=== PATIENT | male | born 1980 ===

== ENCOUNTER 2016-12-13 11:08 | Emergency (ER) | payer OTHER ==
--- NOTE | 2016-12-13 13:27 | DIAGNOSTIC IMAGING REPORT ---
PROCEDURE: XR CHEST 2 VIEW INDICATION: CHEST PAIN TECHNIQUE: Two views. COMPARISON: 10/19/2015 FINDINGS: The cardiomediastinal contour is stable, within normal limits. The central vasculature is not congested. The lungs are clear without focal consolidation, pleural effusion or pneumothorax. The visualized osseous structures are intact. IMPRESSION: 1. No evidence of acute cardiopulmonary disease. 2. Stable exam compared to prior study.
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
--- NOTE | 2016-12-13 14:11 | ED ORDER SUMMARY ---
..... Patient: TAHMINA CHASE OrderSheet [facility] VisitID: [id number] [place] [address] 36y, M Registration Date/Time: 12/13/2016 ORDER SHEET Weight: 2.2 kg (stated) Allergies: No Known Drug Allergy GENERAL ORDERS: Chest 2V Urgent (13:10 12/13/2016 Ramone SUTTON) (Ack 13:14 PWeiler ER Tech1) (13:38 JSanders R.N.) Cardiac Panel Stat (13:10 12/13/2016 Ramone SUTTON) (Ack 13:14 PWeiler ER Tech1) (13:26 JSanders R.N.) EKG - ER Stat (13:12/13/2016 Ramone SUTTON) (Ack 13:14 PWeiler ER Tech1) (13:24 PWeiler ER Tech1) MEDICATION ORDERS: IV FLUIDS: Ativan IV 0.5 mg (NOW) (12:05 12/13/2016 Ramone SUTTON) (12:14 JSanders R.N.) IV Saline Lock (13:10 12/13/2016 Ramone SUTTON) (13:26 JSanders R.N.) Ativan IV 0.5 mg (NOW) (13:54 12/13/2016 JSanders R.N. verbal order read back to Ramone SUTTON) (13:55 JSanders R.N.) ORDER SHEET NOTES: [Electronically signed by Sara Curry R.N. (14:47 12/13/2016)] [Electronically signed by Lenin Urban MD (21:26 12/14/2016)] [Electronically locked/signed by aSra Curry R.N. (14:47 12/13/2016)]
--- NOTE | 2016-12-13 14:11 | ED ORDER SUMMARY ---
..... Patient: TAHMINA CHASE OrderSheet [facility] VisitID: [id number] [place] [address] 36y, M Registration Date/Time: 12/13/2016 ORDER SHEET Weight: 2.2 kg (stated) Allergies: No Known Drug Allergy GENERAL ORDERS: Chest 2V Urgent (13:10 12/13/2016 Ramone SUTTON) (Ack 13:14 PWeiler ER Tech1) (13:38 JSanders R.N.) Cardiac Panel Stat (13:10 12/13/2016 Ramone SUTTON) (Ack 13:14 PWeiler ER Tech1) (13:26 JSanders R.N.) EKG - ER Stat (13:12/13/2016 Ramone SUTTON) (Ack 13:14 PWeiler ER Tech1) (13:24 PWeiler ER Tech1) MEDICATION ORDERS: IV FLUIDS: Ativan IV 0.5 mg (NOW) (12:05 12/13/2016 Ramone SUTTON) (12:14 JSanders R.N.) IV Saline Lock (13:10 12/13/2016 Ramone SUTTON) (13:26 JSanders R.N.) Ativan IV 0.5 mg (NOW) (13:54 12/13/2016 JSanders R.N. verbal order read back to Ramone SUTTON) (13:55 JSanders R.N.) ORDER SHEET NOTES: [Electronically signed by Sara Curry R.N. (14:47 12/13/2016)] [Electronically signed by Lenin Urban MD (21:26 12/14/2016)] [Electronically locked/signed by Sara Curry R.N. (14:47 12/13/2016)]
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
--- NOTE | 2016-12-14 21:26 | ED DISCHARGE INSTRUCTIONS ---
Patient: SALVATORETAHMINAMIRIAM Avila General Instructions [facility] VisitID: [id number] [place] [address] 36y, M Registration Date/Time: 12/13/2016 Anxiety reaction with hyperventilation. INSTRUCTIONS No strenuous activity. Rest. Do not work for three days until better. Warnings: Further evaluation is necessary. SEDATIVE MEDICATION: You were given sedative medication during your visit. Do not drive or operate dangerous machinery. GENERAL WARNINGS: Return or contact your physician immediately if your condition worsens or changes unexpectedly, if not improving as expected, or if other problems arise. Prescription Medications: Xanax 0.25 mg: take 1-2 orally every 6 hours as needed for anxiety. Dispense fifteen (15). No refill. Substitution is permissible. Follow-up: Follow up with your doctor in one week. Call for an appointment. Understanding of the discharge instructions verbalized by patient and family. Discharge instructions reviewed (Mother). ADDITIONAL INFORMATION Stress Reaction Anxiety is the feeling we all get when we think something bad might happen. It is a normal response to stress and usually causes only a mild reaction. When anxiety becomes more severe, emotions may interfere with daily life. In some cases, you may not even be aware of what it is youre anxious about! During an anxiety reaction, you may feel like you are helpless, nervous, depressed or irritable. Your body may show signs of anxiety in many ways. You may experience dry mouth, shakiness, dizziness, weakness, trouble breathing, chest pressure, headache, nausea, diarrhea, tiredness, inability to sleep or sexual problems. Home Care: 1) Try to locate the sources of stress in your life. They may not be obvious! These may include: -- Daily hassles of life which pile up (traffic jams, missed appointments, car troubles, etc.) -- Major life changes, both good (new baby, job promotion) and bad (loss of job, loss of loved one) -- Overload: feeling that you have too many responsibilities and can't take care of all of them at once -- Feeling helpless, feeling that your problems are beyond what youre able to solve 2) Notice how your body reacts to stress. Learn to listen to your body signals. This will help you take action before the stress becomes severe. 3) When you can, do something about the source of your stress. (Avoid hassles, limit the amount of change that happens in your life at one time and take a break when you feel overloaded). 4) Unfortunately, many stressful situations cannot be avoided. It is necessary to learn HOW TO MANAGE STRESS better. There are many proven methods that will reduce your anxiety. These include simple things like exercise, good nutrition and adequate rest. Also, there are certain techniques that are helpful: relaxation and breathing exercises, visualization, biofeedback and meditation. For more information about this, consult your doctor or go to a local bookstore and review the many books and tapes available on this subject. Follow Up If you feel that your anxiety is not responding to self-help measures, contact your doctor or make an appointment with a counselor. Get Prompt Medical Attention if any of the following occur: -- Your symptoms get worse -- Chest pain or trouble breathing -- Severe headache not relieved by rest and mild pain reliever -- Rapid or irregular heartbeat, fainting Panic Attack A panic attack is an extreme fear reaction that comes on for no apparent reason. Symptoms may include pounding or racing heartbeat, shortness of breath, dizziness, weakness and sweating. There is usually a fear that something terrible will happen or that you may . The attack may last a few minutes up to a few hours. Between attacks things will seem quite normal. This condition has a psychological cause and can be treated with the help of a therapist or psychiatrist. Medication is often used and can be very helpful for this problem. Home Care: Try to identify the sources of stress in your life. It may not be obvious! These may include: Daily hassles of life which pile up (traffic jams, missed appointments, car troubles, etc.). Major life changes, both good (new baby, job promotion) and bad (loss of job, loss of loved one). Overload: feeling that you have too many responsibilities and can't take care of everything at once. Helplessness: feeling like your problems are too much for you to handle. Notice how your body reacts to stress. Learn to listen to your body signals so that you can take action before the stress becomes severe. When possible, AVOID or REDUCE THE CAUSE OF STRESS. Avoid hassles, limit the amount of change that is happening in your life at one time or take a break when you feel overloaded. Unfortunately, many stressful situations cannot be avoided. Therefore, it is necessary to LEARN HOW TO MANAGE STRESS better. There are many proven methods that work and will reduce your anxiety. These include simple things like exercise, good nutrition and adequate rest. Also, there are certain techniques that are helpful: relaxation and breathing exercises, visualization, biofeedback, meditation or simply taking some time-out to clear your mind. For more information about this, consult your doctor or go to a local bookstore and review the many books and tapes available on this subject. Follow Up with your doctor or a therapist as advised. Get Prompt Medical Attention if any of the following occur: Worsening of your symptoms to the point of feeling [id number] A change in the type of pain: if it feels different, becomes more severe, lasts longer, or begins to spread into your shoulder, arm, neck, jaw or back Shortness of breath or increased pain with breathing Increasing feeling of weakness or dizziness Fainting Cough with dark colored sputum (phlegm) or blood Fever of 100.4F (38C) or higher, or as directed by your healthcare provider Swelling, pain or redness in one leg Hyperventilation Syndrome Hyperventilation Syndrome is a condition in which you lose control of your breathing. You may find yourself breathing too fast and/or too deep. This can be triggered by pain, anxiety and emotional stress. If hyperventilation continues for more than a few minutes, it can lead to a number of frightening symptoms, such as: Numbness and tingling of the hands, feet and face Clenching of the fingers or toes Dizziness Feeling like you cannot get enough air Chest pains Fainting or feeling like you are going to faint Once these symptoms begin, it is often hard to stop them because they lead to a cycle of more anxiety and more hyperventilation. It is important to understand that this is not a life-threatening condition and it will pass once you are able to relax. Relaxation and stress management methods can be learned and practiced in advance. These can help in the event of a future attack. Home Care: 1) Rest today until feeling back to normal. 2) If symptoms return: Sit or lie down. Remember that what is happening to you is temporary and will pass. Use the relaxation methods you have learned. It is no longer recommended to breathe into a paper bag. Follow Up with your doctor or as directed by our staff if symptoms recur. Get Prompt Medical Attention if any of the following occur: Increasing shortness of breath Fever of 100.0 F (38 C) or higher, or as directed by your healthcare provider Coughing up blood Chest pain that is made worse with each breath Redness, pain or swelling of the leg Ringing in your ears, Severe headache Weakness or fainting Alprazolam Oral tablet What is this medicine? ALPRAZOLAM (al PRAY dolores mcleod) is a benzodiazepine. It is used to treat anxiety and panic attacks. How should I use this medicine? Take this medicine by mouth with a glass of water. Follow the directions on the prescription label. Take your medicine at regular intervals. Do not take it more often than directed. If you have been taking this medicine regularly for some time, do not suddenly stop taking it. You must gradually reduce the dose or you may get severe side effects. Ask your doctor or health urgent care physician assistant for advice. Even after you stop taking this medicine it can still affect your body for several days. Talk to your turn out worker regarding the use of this medicine in children. Special care may be needed. What side effects may I notice from receiving this medicine? Side effects that you should report to your doctor or health urgent care physician assistant as soon as possible: allergic reactions like skin rash, itching or hives, swelling of the face, lips, or tongue confusion, forgetfulness depression difficulty sleeping difficulty speaking feeling faint or lightheaded, falls mood changes, excitability or aggressive behavior muscle cramps trouble passing urine or change in the amount of urine unusually weak or tired Side effects that usually do not require medical attention (report to your doctor or health urgent care physician assistant if they continue or are bothersome): change in sex drive or performance changes in appetite What may interact with this medicine? Do not take this medicine with any of the following medications: certain medicines for HIV infection or AIDS ketoconazole itraconazole This medicine may also interact with the following medications: control pills certain macrolide antibiotics like clarithromycin, erythromycin, troleandomycin cimetidine cyclosporine ergotamine grapefruit juice herbal or dietary supplements like kava kava, melatonin, dehydroepiandrosterone, DHEA, [place]'s Wort or valerian imatinib, [id number] isoniazid levodopa medicines for depression, anxiety, or psychotic disturbances prescription pain medicines rifampin, rifapentine, or rifabutin some medicines for blood pressure or heart problems some medicines for seizures like carbamazepine, oxcarbazepine, phenobarbital, phenytoin, primidone What if I miss a dose? If you miss a dose, take it as soon as you can. If it is almost time for your next dose, take only that dose. Do not take double or extra doses. Where should I keep my medicine? Keep out of the reach of children. This medicine can be abused. Keep your medicine in a safe place to protect it from theft. Do not share this medicine with anyone. Selling or giving away this medicine is dangerous and against the law. Store at room temperature between 20 and 25 degrees C (68 and 77 degrees F). Throw away any unused medicine after the expiration date. What should I tell my health care provider before I take this medicine? They need to know if you have any of these conditions: an alcohol or drug abuse problem bipolar disorder, depression, psychosis or other mental health conditions glaucoma kidney or liver disease lung or breathing disease myasthenia gravis Parkinson's disease porphyria seizures or a history of seizures suicidal thoughts an unusual or allergic reaction to alprazolam, other benzodiazepines, foods, dyes, or preservatives or trying to get breast-feeding What should I watch for while using this medicine? Visit your doctor or health urgent care physician assistant for regular checks on your progress. Your body can become dependent on this medicine. Ask your doctor or health urgent care physician assistant if you still need to take it. You may get drowsy or dizzy. Do not drive, use machinery, or do anything that needs mental alertness until you know how this medicine affects you. To reduce the risk of dizzy and fainting spells, do not stand or sit up quickly, especially if you are an older patient. Alcohol may increase dizziness and drowsiness. Avoid alcoholic drinks. Do not treat yourself for coughs, colds or allergies without asking your doctor or health urgent care physician assistant for advice. Some ingredients can increase possible side effects. You have been given the following additional information: Anxiety Reaction Panic Attack Hyperventilation Syndrome Alprazolam Oral tablet No strenuous activity. Rest. Do not work for three days until better. (Electronically signed by Lenin Urban MD 12/14/2016 21:26)
--- NOTE | 2016-12-14 21:26 | ED MED RECONCILIATION SUMMARY ---
Patient: TAHMINA CHASE Medication Reconciliation Report [facility] VisitID: [id number] [place] [address] 36y, M Registration Date/Time: 12/13/2016 Weight: 2.2 kg Height/Length: 71 in. BMI: 0.7 ALLERGIES: No Known Drug Allergy The patient's Home Medications are listed below: THE FOLLOWING MEDICATIONS NEED TO BE RECONCILED: Hydrochlorothiazide Oral 12.5 mg Lisinopril Oral 10 mg The source(s) of the original Home Medication information: Not obtained. The following Medications were given to the patient in the Emergency Department: Ativan [IVP] IVP 0.5 mg, administered: 12/13/2016 12:14:00 PM Ativan [IVP] IVP 0.5 mg, administered: 12/13/2016 1:54:00 PM The following Medications were prescribed to the patient: Xanax 0.25 mg: take 1-2 orally every 6 hours as needed for anxiety. Dispense fifteen (15). No refill. Substitution is permissible. -- Lenin Urban MD
--- NOTE | 2016-12-14 21:26 | ED DISCHARGE INSTRUCTIONS ---
Patient: SALVATORETAHMINAMIRIAM vAila General Instructions [facility] VisitID: [id number] [place] [address] 36y, M Registration Date/Time: 12/13/2016 Anxiety reaction with hyperventilation. INSTRUCTIONS No strenuous activity. Rest. Do not work for three days until better. Warnings: Further evaluation is necessary. SEDATIVE MEDICATION: You were given sedative medication during your visit. Do not drive or operate dangerous machinery. GENERAL WARNINGS: Return or contact your physician immediately if your condition worsens or changes unexpectedly, if not improving as expected, or if other problems arise. Prescription Medications: Xanax 0.25 mg: take 1-2 orally every 6 hours as needed for anxiety. Dispense fifteen (15). No refill. Substitution is permissible. Follow-up: Follow up with your doctor in one week. Call for an appointment. Understanding of the discharge instructions verbalized by patient and family. Discharge instructions reviewed (Mother). ADDITIONAL INFORMATION Stress Reaction Anxiety is the feeling we all get when we think something bad might happen. It is a normal response to stress and usually causes only a mild reaction. When anxiety becomes more severe, emotions may interfere with daily life. In some cases, you may not even be aware of what it is youre anxious about! During an anxiety reaction, you may feel like you are helpless, nervous, depressed or irritable. Your body may show signs of anxiety in many ways. You may experience dry mouth, shakiness, dizziness, weakness, trouble breathing, chest pressure, headache, nausea, diarrhea, tiredness, inability to sleep or sexual problems. Home Care: 1) Try to locate the sources of stress in your life. They may not be obvious! These may include: -- Daily hassles of life which pile up (traffic jams, missed appointments, car troubles, etc.) -- Major life changes, both good (new baby, job promotion) and bad (loss of job, loss of loved one) -- Overload: feeling that you have too many responsibilities and can't take care of all of them at once -- Feeling helpless, feeling that your problems are beyond what youre able to solve 2) Notice how your body reacts to stress. Learn to listen to your body signals. This will help you take action before the stress becomes severe. 3) When you can, do something about the source of your stress. (Avoid hassles, limit the amount of change that happens in your life at one time and take a break when you feel overloaded). 4) Unfortunately, many stressful situations cannot be avoided. It is necessary to learn HOW TO MANAGE STRESS better. There are many proven methods that will reduce your anxiety. These include simple things like exercise, good nutrition and adequate rest. Also, there are certain techniques that are helpful: relaxation and breathing exercises, visualization, biofeedback and meditation. For more information about this, consult your doctor or go to a local bookstore and review the many books and tapes available on this subject. Follow Up If you feel that your anxiety is not responding to self-help measures, contact your doctor or make an appointment with a counselor. Get Prompt Medical Attention if any of the following occur: -- Your symptoms get worse -- Chest pain or trouble breathing -- Severe headache not relieved by rest and mild pain reliever -- Rapid or irregular heartbeat, fainting Panic Attack A panic attack is an extreme fear reaction that comes on for no apparent reason. Symptoms may include pounding or racing heartbeat, shortness of breath, dizziness, weakness and sweating. There is usually a fear that something terrible will happen or that you may . The attack may last a few minutes up to a few hours. Between attacks things will seem quite normal. This condition has a psychological cause and can be treated with the help of a therapist or psychiatrist. Medication is often used and can be very helpful for this problem. Home Care: Try to identify the sources of stress in your life. It may not be obvious! These may include: Daily hassles of life which pile up (traffic jams, missed appointments, car troubles, etc.). Major life changes, both good (new baby, job promotion) and bad (loss of job, loss of loved one). Overload: feeling that you have too many responsibilities and can't take care of everything at once. Helplessness: feeling like your problems are too much for you to handle. Notice how your body reacts to stress. Learn to listen to your body signals so that you can take action before the stress becomes severe. When possible, AVOID or REDUCE THE CAUSE OF STRESS. Avoid hassles, limit the amount of change that is happening in your life at one time or take a break when you feel overloaded. Unfortunately, many stressful situations cannot be avoided. Therefore, it is necessary to LEARN HOW TO MANAGE STRESS better. There are many proven methods that work and will reduce your anxiety. These include simple things like exercise, good nutrition and adequate rest. Also, there are certain techniques that are helpful: relaxation and breathing exercises, visualization, biofeedback, meditation or simply taking some time-out to clear your mind. For more information about this, consult your doctor or go to a local bookstore and review the many books and tapes available on this subject. Follow Up with your doctor or a therapist as advised. Get Prompt Medical Attention if any of the following occur: Worsening of your symptoms to the point of feeling [id number] A change in the type of pain: if it feels different, becomes more severe, lasts longer, or begins to spread into your shoulder, arm, neck, jaw or back Shortness of breath or increased pain with breathing Increasing feeling of weakness or dizziness Fainting Cough with dark colored sputum (phlegm) or blood Fever of 100.4F (38C) or higher, or as directed by your healthcare provider Swelling, pain or redness in one leg Hyperventilation Syndrome Hyperventilation Syndrome is a condition in which you lose control of your breathing. You may find yourself breathing too fast and/or too deep. This can be triggered by pain, anxiety and emotional stress. If hyperventilation continues for more than a few minutes, it can lead to a number of frightening symptoms, such as: Numbness and tingling of the hands, feet and face Clenching of the fingers or toes Dizziness Feeling like you cannot get enough air Chest pains Fainting or feeling like you are going to faint Once these symptoms begin, it is often hard to stop them because they lead to a cycle of more anxiety and more hyperventilation. It is important to understand that this is not a life-threatening condition and it will pass once you are able to relax. Relaxation and stress management methods can be learned and practiced in advance. These can help in the event of a future attack. Home Care: 1) Rest today until feeling back to normal. 2) If symptoms return: Sit or lie down. Remember that what is happening to you is temporary and will pass. Use the relaxation methods you have learned. It is no longer recommended to breathe into a paper bag. Follow Up with your doctor or as directed by our staff if symptoms recur. Get Prompt Medical Attention if any of the following occur: Increasing shortness of breath Fever of 100.0 F (38 C) or higher, or as directed by your healthcare provider Coughing up blood Chest pain that is made worse with each breath Redness, pain or swelling of the leg Ringing in your ears, Severe headache Weakness or fainting Alprazolam Oral tablet What is this medicine? ALPRAZOLAM (al PRAY dolores mcleod) is a benzodiazepine. It is used to treat anxiety and panic attacks. How should I use this medicine? Take this medicine by mouth with a glass of water. Follow the directions on the prescription label. Take your medicine at regular intervals. Do not take it more often than directed. If you have been taking this medicine regularly for some time, do not suddenly stop taking it. You must gradually reduce the dose or you may get severe side effects. Ask your doctor or health day care home mother for advice. Even after you stop taking this medicine it can still affect your body for several days. Talk to your [facility] [facility] regarding the use of this medicine in children. Special care may be needed. What side effects may I notice from receiving this medicine? Side effects that you should report to your doctor or health day care home mother as soon as possible: allergic reactions like skin rash, itching or hives, swelling of the face, lips, or tongue confusion, forgetfulness depression difficulty sleeping difficulty speaking feeling faint or lightheaded, falls mood changes, excitability or aggressive behavior muscle cramps trouble passing urine or change in the amount of urine unusually weak or tired Side effects that usually do not require medical attention (report to your doctor or health day care home mother if they continue or are bothersome): change in sex drive or performance changes in appetite What may interact with this medicine? Do not take this medicine with any of the following medications: certain medicines for HIV infection or AIDS ketoconazole itraconazole This medicine may also interact with the following medications: control pills certain macrolide antibiotics like clarithromycin, erythromycin, troleandomycin cimetidine cyclosporine ergotamine grapefruit juice herbal or dietary supplements like kava kava, melatonin, dehydroepiandrosterone, DHEA, [place] Wort or valerian imatinib, [id number] isoniazid levodopa medicines for depression, anxiety, or psychotic disturbances prescription pain medicines rifampin, rifapentine, or rifabutin some medicines for blood pressure or heart problems some medicines for seizures like carbamazepine, oxcarbazepine, phenobarbital, phenytoin, primidone What if I miss a dose? If you miss a dose, take it as soon as you can. If it is almost time for your next dose, take only that dose. Do not take double or extra doses. Where should I keep my medicine? Keep out of the reach of children. This medicine can be abused. Keep your medicine in a safe place to protect it from theft. Do not share this medicine with anyone. Selling or giving away this medicine is dangerous and against the law. Store at room temperature between 20 and 25 degrees C (68 and 77 degrees F). Throw away any unused medicine after the expiration date. What should I tell my health care provider before I take this medicine? They need to know if you have any of these conditions: an alcohol or drug abuse problem bipolar disorder, depression, psychosis or other mental health conditions glaucoma kidney or liver disease lung or breathing disease myasthenia gravis Parkinson's disease porphyria seizures or a history of seizures suicidal thoughts an unusual or allergic reaction to alprazolam, other benzodiazepines, foods, dyes, or preservatives or trying to get breast-feeding What should I watch for while using this medicine? Visit your doctor or health day care home mother for regular checks on your progress. Your body can become dependent on this medicine. Ask your doctor or health day care home mother if you still need to take it. You may get drowsy or dizzy. Do not drive, use machinery, or do anything that needs mental alertness until you know how this medicine affects you. To reduce the risk of dizzy and fainting spells, do not stand or sit up quickly, especially if you are an older patient. Alcohol may increase dizziness and drowsiness. Avoid alcoholic drinks. Do not treat yourself for coughs, colds or allergies without asking your doctor or health day care home mother for advice. Some ingredients can increase possible side effects. You have been given the following additional information: Anxiety Reaction Panic Attack Hyperventilation Syndrome Alprazolam Oral tablet No strenuous activity. Rest. Do not work for three days until better. (Electronically signed by Lenin Urban MD 12/14/2016 21:26)
--- NOTE | 2016-12-14 21:26 | ED MED RECONCILIATION SUMMARY ---
Patient: TAHMINA CHASE Medication Reconciliation Report [facility] VisitID: [id number] [place] [address] 36y, M Registration Date/Time: 12/13/2016 Weight: 2.2 kg Height/Length: 71 in. BMI: 0.7 ALLERGIES: No Known Drug Allergy The patient's Home Medications are listed below: THE FOLLOWING MEDICATIONS NEED TO BE RECONCILED: Hydrochlorothiazide Oral 12.5 mg Lisinopril Oral 10 mg The source(s) of the original Home Medication information: Not obtained. The following Medications were given to the patient in the Emergency Department: Ativan [IVP] IVP 0.5 mg, administered: 12/13/2016 12:14:00 PM Ativan [IVP] IVP 0.5 mg, administered: 12/13/2016 1:54:00 PM The following Medications were prescribed to the patient: Xanax 0.25 mg: take 1-2 orally every 6 hours as needed for anxiety. Dispense fifteen (15). No refill. Substitution is permissible. -- Lenin Urban MD
--- NOTE | 2016-12-14 21:26 | ED MAR SUMMARY ---
..... Medication Administration Record [facility] [address] [place] [address] Patient: TAHMINA CHASE Visit ID: [id number] 36y, M Weight: 2.2 kg Height/Length: 71 in BMI: 0.7 ALLERGIES: No Known Drug Allergy Given 12:14 12/13/2016 Sara Curry R.N. Medication Administered: ATIVAN [IVP] (LORAZEPAM), Dose: 0.5 mg IVP over 1 minute(s), Site: #1 right AC. Medication Ordered: Ativan IV 0.5 mg (NOW). Given 13:54 12/13/2016 Sara Curry R.N. Medication Administered: ATIVAN [IVP] (LORAZEPAM), Dose: 0.5 mg IVP over 1 minute(s), Site: #1 right AC. Medication Ordered: Ativan IV 0.5 mg (NOW).
--- NOTE | 2016-12-14 21:26 | ED MAR SUMMARY ---
..... Medication Administration Record [facility] [address] [place] [address] Patient: TAHMINA CHASE Visit ID: [id number] 36y, M Weight: 2.2 kg Height/Length: 71 in BMI: 0.7 ALLERGIES: No Known Drug Allergy Given 12:14 12/13/2016 Sara Curry R.N. Medication Administered: ATIVAN [IVP] (LORAZEPAM), Dose: 0.5 mg IVP over 1 minute(s), Site: #1 right AC. Medication Ordered: Ativan IV 0.5 mg (NOW). Given 13:54 12/13/2016 Sara Curry R.N. Medication Administered: ATIVAN [IVP] (LORAZEPAM), Dose: 0.5 mg IVP over 1 minute(s), Site: #1 right AC. Medication Ordered: Ativan IV 0.5 mg (NOW).
== END 2016-12-13 14:39 | disposition home or self-care (01) ==
LOC: ED SRH 11:08
DX: F41.1 Generalized anxiety disorder (principal); R06.4 Hyperventilation; I10 Essential (primary) hypertension; Z79.899 Other long term (current) drug therapy
CPT/HCPCS: 90100; 90616; 92610; 92720; 95059

== ENCOUNTER 2017-01-10 09:58 | Emergency (ER) | payer SELFPAY ==
--- NOTE | 2017-01-10 11:28 | DIAGNOSTIC IMAGING REPORT ---
PROCEDURE: XR CHEST 1 VIEW INDICATION: CHEST PAIN TECHNIQUE: Portable AP view 11:00 a.m. COMPARISON: Chest 12/13/2016 and 10/19/2015 FINDINGS: Lungs are clear. Heart and mediastinum are normal. Thorax is normal. IMPRESSION: 1. Negative chest.
--- NOTE | 2017-01-10 11:45 | ED NURSING NOTES ---
Clinical Report - Nurses [facility] [address] [place] [address] 01/10/2017 9:58 [id number] Triage time 10:Jan 10 2017. Acuity: LEVEL 2. Chief Complaint: CHEST PAIN. --10:07 Rodrigo Vences R.N. 10:03 01/10/17. BP: 122/78. HR: 64. RR: 18. O2 saturation: 97%. Pain level now 05/07. --10:07 Rodrigo Vences R.N. Weight: 90.7 kg stated. Height/Length: 71 inches Per Patient. BMI: 27.9. --10:05 Rodrigo Vences R.N. Medications Hydrochlorothiazide Oral 12.5 mg. Lisinopril Oral 10 mg. --10:05 Rodrigo Vences R.N. Allergies No Known Drug Allergy. --10:05 Rodrigo Vences R.N. History Arrived by private vehicle. Historian: patient. Accompanied by family. This started just prior to arrival. ( Went to urgent care with chest pain and left sided pain. Patient states left arm is numb and tingling.). No difficulty breathing, sweating episodes, nausea, vomiting or fever. No cough. PAST MEDICAL HX: No history of diabetes mellitus, hypertension, heart disease or lung disease. Immunizations: up-to-date. SOCIAL HX: Never smoker. No alcohol use or drug use. SELF HARM ASSESSMENT: A self harm assessment was performed. The patient answered "no" to the question "Have you recently felt down, depressed, or hopeless?" and "Do you have thoughts of harming or killing yourself?". FALL RISK ASSESSMENT: Fall risk assessment completed. No fall risk identified. NUTRITIONAL RISK ASSESSMENT: The nutritional risk assessment revealed no deficiencies. FUNCTIONAL ASSESSMENT: Functional assessment: no impairments noted. LEARNING NEEDS ASSESSMENT: The learning needs assessment revealed no barriers. ABUSE ASSESSMENT: Abuse assessment: (yes) The patient was asked "Do you feel safe in your home?". SKIN INTEGRITY ASSESSMENT: Skin integrity risk assessment completed. No skin integrity risk identified. --10: Rodrigo Vences R.N. PROBLEMS: Dyspnea. Costochondritis. Acute Pain. Crush Injury, Upper Extremity. Tetanus Status. Hypertension. TMJ Syndrome. Myofascial Strain. MRSA Infection. Sinusitis. Headache. Nausea. Anxiety Reaction. Immunizations. Drug Poisoning. Abdominal Pain. --10: Rodrigo Vences R.N. Pyelonephritis [RuleOut]. Suicidal Ideation [RuleOut]. Inguinal Strain [RuleOut]. --10: Rodrigo Vences R.N. ADDITIONAL SURGERIES: Appendectomy. Left buttock surgery for "MRSA". Shoulder Surgery. --10: Rodrigo Vences R.N. Interventions ID band on patient. --: Rodrigo Vences R.N. PHYSICAL ASSESSMENT To room via stretcher. GENERAL / NEURO / PSYCH: Alert. Oriented X 4. Appears anxious. HEENT: Mucous membranes are pink. RESPIRATORY: Respirations not labored. Chest nontender. Breath sounds within normal limits. CVS: Normal sinus rhythm noted. Cardiac rhythm: normal sinus rhythm; sinus . Heart sounds within normal limits. Pulses within normal limits. Capillary refill less than 2 seconds. GI / : Abdomen soft and nontender. ( Last BM last night and normal.). EXTREMITIES: No lower extremity edema. SKIN: Skin is warm and dry. Normal skin turgor. Skin is non-tender. --10: Rodrigo Vences R.N. NURSING PROGRESS NOTES The initial plan of care for this patient includes an assessment with efforts to address patient positioning, appropriate ambient lighting and comfortable environmental temperature; impairment of the cardiovascular system. corrosion prevention metal sprayer, pulse oximeter and NIBP monitor placed on patient. Patient gowned. Reassurance given. Call light placed in reach. Side rails up x 1. Bed placed in lowest position. Brakes of bed on. --10: Rodrigo Vences R.N. 10:01/10/2017 Site #1 started prior to arrival by EMS via IV in the right hand with an 18g angiocath, with aseptic technique and good blood return; one attempt. Saline lock flushed with 10 mL saline. --10: Rodriog Vences R.N. EKG time: (1007). EKG was ordered, performed by a tech and shown to the ED physician. --10:14 Emy LockwoodraSHU mtz Tech1 Patient ID band checked for patient name and birthdate: patient confirmed. Instructions provided to collect clean catch urine and patient verbalized understanding. Clean catch urine collected with return of yellow-colored clear urine; sample sent to lab for urinalysis, culture and drug screen. Specimen labeled in the presence of the patient. --11:00 Mandie Shira, ER Tech1 11:30 01/10/17. BP: 118/76. HR: 70. RR: 15. O2 saturation: 98%. Temp: 98.6 F. 11:00 01/10/17. BP: 119/75. HR: 66. RR: 12. O2 saturation: 97%. 10:30 01/10/17. BP: 119/74. HR: 66. RR: 16. O2 saturation: 95%. --12:01 Rodrigo Vences R.N. DISPOSITION / DISCHARGE Departure time: 1154Jan 10 2017. Condition at departure: improved. No learning barriers present. Discharge instructions provided and reviewed with the patient. Reviewed warnings. Reviewed medication(s). Treatments reviewed. Reviewed referrals. Patient verbalized understanding. Written instructions provided in Fijian. The patient was discharged home. He left the Emergency Department ambulatory and via private vehicle. Patient driving. --12:04 Rodrigo Vences R.N. 11:30 01/10/17. BP: 118/76. HR: 70. RR: 15. O2 saturation: 98%. Temp: 98.6 F. --12:04 Rodrigo Vences R.N. 11:45 01/10/2017 Site #1 removed upon discharge. Catheter intact. Pressure dressing applied. --12:05 Rodrigo Vences R.N. Locked/Released at 01/10/2017 19:30 by Rodrigo Vences R.N.
--- NOTE | 2017-01-10 11:45 | ED CLINICAL REPORT ---
Clinical Report - Physicians/Mid Levels [facility] [address] [place] [address] 01/10/2017 9:58 Patient: TAHMINA CHASE Time Seen: 10:04. Arrived- By private vehicle. Historian- patient. HISTORY OF PRESENT ILLNESS Chief Complaint: CHEST PAIN. At its maximum, severity described as moderate. When seen in the E.D., severity described as moderate. Modifying factors. Not worsened by anything. Not relieved by anything. This started today and is still present (persistent). It was abrupt in onset and has been constant. Onset during light activity. It is described as "pain" and it is described as located in the central chest and left chest area and radiating to the left arm. No nausea, vomiting, difficulty breathing or diaphoresis. Similar symptoms previously: Many times. Recent medical care: The patient was seen recently in a clinic (sent from next door. Was given NTG and ASA w/ no relief.). REVIEW OF SYSTEMS No fever, chills, cough, pedal edema or calf pain. No fainting episodes. He has had a headache. All systems otherwise negative, except as recorded above. PAST HISTORY Dyspnea. Costochondritis. Acute Pain. Crush Injury, Upper Extremity. Tetanus Status. Hypertension. TMJ Syndrome. Myofascial Strain. MRSA Infection. Sinusitis. Headache. Nausea. Anxiety Reaction. Immunizations. Drug Poisoning. Abdominal Pain. Pyelonephritis Suicidal Ideation Inguinal Strain ADDITIONAL SURGERIES: Appendectomy. Left buttock surgery for "MRSA". Shoulder Surgery. SOCIAL HISTORY Never smoker. No alcohol use or drug use. ADDITIONAL NOTES The nursing notes have been reviewed. PHYSICAL EXAM Vital Signs: 01/10/2017 10:03 BP: 122/78. HR: 64. RR: 18. O2 saturation: 97%. Have been reviewed as normal. Appearance: Alert. Oriented X3. No acute distress. Eyes: Eyes normal inspection. ENT: Pharynx normal. Neck: Normal inspection. Neck supple. No JVD. CVS: Normal heart rate and rhythm. Heart sounds normal. Respiratory: No respiratory distress. Chest pain reproducible with deep breathing (w/ palpation of L pec major). Breath sounds normal. Abdomen: Soft and nontender. Bowel sounds normal. Skin: Skin warm and dry. Normal skin color. Extremities: Extremities exhibit normal ROM. No calf tenderness. No lower extremity edema. Neuro: Oriented X 3. LABS, X-RAYS, AND EKG EKG: EKG time: (1007). No acute process. No acute ischemia. Normal EKG. Normal sinus rhythm. Rate: 65. Normal P waves. Normal ONEAL. Normal QRS complex. Normal axis. Normal ST and T waves, QT and QTc. EKG unchanged when compared with prior EKG. (12/13/16). The study has been interpreted contemporaneously by me. The study has been independently viewed by me. The EKG appears to be a good tracing. I agree with and confirm the computer reading of the EKG. Interpretation time: 1007. Chest X-ray: No acute disease. Normal lung markings present. Normal heart size. Mediastinum normal. Great vessels normal. No infiltrate. No fracture. No bony lesion present. Views: AP. Technique: good. The X-rays were independently viewed by me and interpreted contemporaneously by me. A comparison with prior films reveals that the findings are unchanged. Interpretation time: 11:29. Laboratory Tests: UA-Culture if indicated: (DOLORES: 01/10/2017 10:50) ( MsgRcvd 01/10/2017 11:17) Final results Test Result Flag Units (Reference) URINE COLOR YELLOW URINE APPEARANCE CLEAR URINE GLUCOSE NEGATIVE (NEGATIVE) URINE BILIRUBIN NEGATIVE (NEGATIVE) URINE KETONE NEGATIVE (NEGATIVE) URINE SPECIFIC GRAVITY <= 1.005 L (1.010-1.030) URINE PH 7.0 (5.0-8.0) URINE PROTEIN NEGATIVE (NEGATIVE) URINE UROBILINOGEN 0.2 EU/dL (0.2-1.0) URINE NITRITE NEGATIVE (NEGATIVE) URINE BLOOD TRACE-INTACT (NEGATIVE) URINE LEUK ESTERASE NEGATIVE (NEGATIVE) URINE RBC NONE SEEN rbc/hpf (0-1) URINE WBC RARE wbc/hpf (0-1) URINE EPITHELIAL CELLS RARE EPI/hpf (0-5) URINE BACTERIA NONE SEEN (NONE SEEN) URINE COMMENT CULT NOT INDICATED URINE CULTURES ARE SET-UP BASED ON THE FOLLOWING CRITERIA:POSITIVE NITRITEPOSITIVE LEUKOCYTE ESTERASEGREATER THAN 10 WHITE BLOOD CELLSMODERATE (2+) OR GREATER BACTERIA CBC w Diff: (DOLORES: 01/10/2017 10:10) ( [facility] 01/10/2017 10:49) Final results Test Result Flag Units (Reference) WHITE BLOOD COUNT 6.3 K/uL (4.5-11.5) RED BLOOD COUNT 4.64 M/uL (4.50-5.90) HEMOGLOBIN 14.3 gm/dL (13.5-17.5) HEMATOCRIT 41.7 % (41.0-53.0) MEAN CELL VOLUME 90 fL (80-100) MEAN CORPUSCULAR HGB 31 pg (26-34) MEAN CORPUSCULAR HGB CONC 34 g/dL (31-37) RED CELL DISTRIBUTION WIDTH 12.9 % (11.6-14.8) PLATELET COUNT 201 K/uL (150-400) NEUTROPHIL % 56.8 % (50-75) LYMPH % 32.6 % (25-40) MONO % 7.6 % (3-14) EOSINOPHIL % 2.1 % (0-4) BASOPHIL % 0.9 % (0-2) [id number]: (DOLORES: 01/10/2017 10:10) ( [facility] 01/10/2017 10:55) Final results Test Result Flag Units (Reference) D-DIMER QUANTITATIVE < 0.27 L ug/mLFEU (0.27-0.52) The primary value of this quantitative assay relates toits negative predictive value (i.e. exclusion) of pulmonaryembolism/deep vein thrombosis/DIC.Elevated levels of d-dimer may also occur with:, age, cancer, inflammation, liver disease,post-op, infection, hematoma, coronary disease, peripheralarteriopathy, bleeding disorders and thrombolytic treatment.Results should be correlated with other clinical andradiological data.Testing Methodology: Latex Immunoassay CHEM 13 PANEL: (DOLORES: 01/10/2017 10:10) ( [facility] 01/10/2017 11:09) Final results Test Result Flag Units (Reference) GLUCOSE 103 mg/dL (70-110) BUN 13 mg/dL (7-18) CREATININE 0.9 mg/dL (0.6-1.3) Estimated GFR >60 mL/min Estimated GFR- >60 mL/min Note: Persistent reduction over 3 months in eGFR<60 mL/min/1.73 m2 defines CKD. Patients with eGFR values>=60 mL/min/1.73 m2 may also have CKD if evidence ofpersistent proteinuria. Additional information may be foundat www.kidney.org. SODIUM 140 mmol/L (136-145) POTASSIUM 3.7 mmol/L (3.5-5.1) CHLORIDE 104 mmol/L (98-107) CARBON DIOXIDE 26 mmol/L (21-32) CALCIUM 8.9 mg/dL (8.5-10.1) TOTAL PROTEIN 7.5 g/dL (6.4-8.2) ALBUMIN 3.7 g/dL (3.3-5.0) BILIRUBIN, TOTAL 0.4 mg/dL (0.0-1.0) ALKALINE PHOSPHATASE 68 U/L (46-116) AST (SGOT) 24 U/L (15-37) ALT (SGPT) 65 U/L (12-78) MAGNESIUM 1.9 mg/dL (1.8-2.4) CPK 97 U/L (24-260) TROPONIN I <0.05 ng/mL (0.00-1.5) TROPONIN REFERENCE RANGE:<0.1 NEGATIVE0.1-1.5 INDETERMINANT>1.5 POSITIVE . PROGRESS AND PROCEDURES Disposition: Discharged home in good condition. Condition: good. CLINICAL IMPRESSION Chest wall pain .12 lead EKG performed. INSTRUCTIONS Rest at home today and tomorrow. Your Current Medications: CONTINUE TAKING THE FOLLOWING MEDICATIONS: Hydrochlorothiazide Oral : 12.5 mg. Lisinopril Oral : 10 mg. Prescription Medications: Diclofenac 50 mg tablets: take 1 tablet orally every 8 hours as needed for pain or stiffness. Dispense thirty (30). No refill. Follow-up: Follow up with your doctor in about two days. Call for an appointment. Blood pressure screening was not performed during this visit because the patient has an active diagnosis of hypertension. (Electronically signed by Adam Woodruff Dr. 01/11/2017 20:24)
--- NOTE | 2017-01-10 11:45 | ED ORDER SUMMARY ---
..... Patient: TAHMINA CHASE OrderSheet [facility] VisitID: [id number] [place] [address] 36y, M Registration Date/Time: 01/10/2017 ORDER SHEET Weight: 90.7 kg (stated) Allergies: No Known Drug Allergy GENERAL ORDERS: Chest 1V Urgent (10:40 01/10/2017 Edita Kim) (Ack 10:42 KHoerner) (11:04 KHoerner) Cardiac Panel Stat (10:40 01/10/2017 Edita Kim) (Ack 10:42 KHoerner) (10:42 KHoerner) (10:45 LWhalen R.N.) D-Dimer Urgent (10:40 01/10/2017 Edita Kim) (Ack 10:42 KHoerner) (10:42 KHoerner) (10:45 LWhalen R.N.) UA-Culture if indicated Urgent (10:40 01/10/2017 Edita Kim) (Ack 10:42 KHoerner) (10:59 LNations ER Tech1) Urine Drug Screen Urgent (10:40 01/10/2017 Edita Kim) (Ack 10:42 KHoerner) (10:42 KHoerner) EKG - ER Stat (10:43 01/10/2017 KHoerner verbal order read back to Edita Kim) (10:43 KHoerner) MEDICATION ORDERS: IV FLUIDS: IV Saline Lock (10:40 01/10/2017 Edita Kim) (Ack 10:45 LWhalen R.N.) ORDER SHEET NOTES: [Electronically signed by Rodrigo Vences R.N. (19:30 01/10/2017)] [Electronically signed by Adam Woodruff Dr. (20:24 01/11/2017)] [Electronically locked/signed by Rodrigo Vences R.N. (19:30 01/10/2017)]
--- NOTE | 2017-01-10 11:45 | ED ORDER SUMMARY ---
..... Patient: TAHMINA CHASE OrderSheet [facility] VisitID: [id number] [place] [address] 36y, M Registration Date/Time: 01/10/2017 ORDER SHEET Weight: 90.7 kg (stated) Allergies: No Known Drug Allergy GENERAL ORDERS: Chest 1V Urgent (10:40 01/10/2017 Edita Kim) (Ack 10:42 KHoerner) (11:04 KHoerner) Cardiac Panel Stat (10:40 01/10/2017 Edita Kim) (Ack 10:42 KHoerner) (10:42 KHoerner) (10:45 LWhalen R.N.) D-Dimer Urgent (10:40 01/10/2017 Edita Kim) (Ack 10:42 KHoerner) (10:42 KHoerner) (10:45 LWhalen R.N.) UA-Culture if indicated Urgent (10:40 01/10/2017 Edita Kim) (Ack 10:42 KHoerner) (10:59 LNations ER Tech1) Urine Drug Screen Urgent (10:40 01/10/2017 Edita Kim) (Ack 10:42 KHoerner) (10:42 KHoerner) EKG - ER Stat (10:43 01/10/2017 KHoerner verbal order read back to Edita Kim) (10:43 KHoerner) MEDICATION ORDERS: IV FLUIDS: IV Saline Lock (10:40 01/10/2017 Edita Kim) (Ack 10:45 LWhalen R.N.) ORDER SHEET NOTES: [Electronically signed by Rodrigo Vences R.N. (19:30 01/10/2017)] [Electronically signed by Adam Woodruff Dr. (20:24 01/11/2017)] [Electronically locked/signed by Rodrigo Vences R.N. (19:30 01/10/2017)]
--- NOTE | 2017-01-11 20:24 | ED MED RECONCILIATION SUMMARY ---
Patient: TAHMINA CHASE Medication Reconciliation Report [facility] VisitID: [id number] [address] [place] [address] 36y, M Registration Date/Time: 01/10/2017 Weight: 90.7 kg Height/Length: 71 in. BMI: 27.9 ALLERGIES: No Known Drug Allergy The patient's Home Medications are listed below: CONTINUE TAKING THE FOLLOWING MEDICATIONS: Hydrochlorothiazide Oral 12.5 mg Lisinopril Oral 10 mg The source(s) of the original Home Medication information: Not obtained. The following Medications were given to the patient in the Emergency Department: None. The following Medications were prescribed to the patient: Diclofenac 50 mg tablets: take 1 tablet orally every 8 hours as needed for pain or stiffness. Dispense thirty (30). No refill. -- Adam Woodruff Dr.
--- NOTE | 2017-01-11 20:24 | ED MAR SUMMARY ---
..... Medication Administration Record [facility] [address] [place], [place] [id number] Patient: TAHMINA CHASE Visit ID: [id number] 36y, M Weight: 90.7 kg Height/Length: 71 in BMI: 27.9 ALLERGIES: No Known Drug Allergy
--- NOTE | 2017-01-11 20:24 | ED MED RECONCILIATION SUMMARY ---
Patient: TAHMINA CHASE Medication Reconciliation Report [facility] VisitID: [id number] [address] [place] [address] 36y, M Registration Date/Time: 01/10/2017 Weight: 90.7 kg Height/Length: 71 in. BMI: 27.9 ALLERGIES: No Known Drug Allergy The patient's Home Medications are listed below: CONTINUE TAKING THE FOLLOWING MEDICATIONS: Hydrochlorothiazide Oral 12.5 mg Lisinopril Oral 10 mg The source(s) of the original Home Medication information: Not obtained. The following Medications were given to the patient in the Emergency Department: None. The following Medications were prescribed to the patient: Diclofenac 50 mg tablets: take 1 tablet orally every 8 hours as needed for pain or stiffness. Dispense thirty (30). No refill. -- Adam Woodruff Dr.
--- NOTE | 2017-01-11 20:24 | ED DISCHARGE INSTRUCTIONS ---
Patient: SALVATORETAHMINA General Instructions [facility] VisitID: [id number] [place] [address] 36y, M Registration Date/Time: 01/10/2017 Chest wall pain .12 lead EKG performed. INSTRUCTIONS Rest at home today and tomorrow. Your Current Medications: CONTINUE TAKING THE FOLLOWING MEDICATIONS: Hydrochlorothiazide Oral : 12.5 mg. Lisinopril Oral : 10 mg. Prescription Medications: Diclofenac 50 mg tablets: take 1 tablet orally every 8 hours as needed for pain or stiffness. Dispense thirty (30). No refill. Follow-up: Follow up with your doctor in about two days. Call for an appointment. Blood pressure screening was not performed during this visit because the patient has an active diagnosis of hypertension. ADDITIONAL INFORMATION Chest Strain A strain of the chest is due to stretching and tearing of the muscle fibers between the ribs. This may occur as a result of severe coughing, strenuous lifting or twisting injuries of the upper back. This usually causes increased pain with movement or deep breathing. This may take a few days to a few weeks to heal. Home Care: Rest. Avoid heavy lifting or strenuous exertion. Avoid any activity that causes pain. If you have a severe cough, use a cough syrup such as Robitussin DM (containing dextromethorphan) unless another cough medicine was prescribed. You may use acetaminophen (Tylenol) or ibuprofen (Motrin, Advil) to control pain, unless another medicine was prescribed. [ NOTE: If you have chronic liver or kidney disease or ever had a stomach ulcer or GI bleeding, talk with your doctor before using these medicines.] Follow Up with your doctor as directed. Get Prompt Medical Attention if any of the following occur: A change in the type of pain: if it feels different, becomes more severe, lasts longer, or begins to spread into your shoulder, arm, neck, jaw or back Shortness of breath or increased pain with breathing Cough with dark colored sputum (phlegm) or blood Weakness, dizziness, or fainting Fever of 100.4F (38C) or higher, or as directed by your healthcare provider You have been given the following additional information: Chest Wall Strain Rest at home today and tomorrow. (Electronically signed by Adam Woodruff Dr. 01/11/2017 20:24)
--- NOTE | 2017-01-11 20:24 | ED MAR SUMMARY ---
..... Medication Administration Record [facility] [address] [place], [place] [id number] Patient: TAHMINA CHASE Visit ID: [id number] 36y, M Weight: 90.7 kg Height/Length: 71 in BMI: 27.9 ALLERGIES: No Known Drug Allergy
== END 2017-01-10 11:55 | disposition home or self-care (01) ==
LOC: ED SRH 09:58
DX: R07.89 Other chest pain (principal); I10 Essential (primary) hypertension
CPT/HCPCS: 90004; 90100; 90616; 91556; 92610; 92720; 92760; 92761; 92762; 92763; 92764; 92765; 92766; 92767; 95059

== ENCOUNTER 2017-02-15 21:03 | Emergency (ER) | payer BC ==
--- NOTE | 2017-02-16 01:54 | ED CLINICAL REPORT ---
Clinical Report - Physicians/Mid Levels [facility] [address] [place] [address] 02/15/2017 21:04 Patient: TAHMINA CHASE Time Seen: 21:08; initial patient contact. Arrived- By private vehicle. Historian- patient. HISTORY OF PRESENT ILLNESS Is still present. Chief Complaint: HEADACHE. This started about 12 hours ago. It was gradual in onset. It is described as pressure. Located in the frontal region. No neck pain. Not located in the facial region. At its maximum, severity described as moderate. When seen in the E.D., severity described as moderate. The patient has had nausea. No preceding symptoms, blurred vision, photophobia or vomiting. Similar symptoms previously: None. Recent medical care: Not recently seen/assessed. REVIEW OF SYSTEMS The patient has had sinus pressure, fever, muscle aches and back pain. No skin rash. All systems otherwise negative, except as recorded above. PAST HISTORY Dyspnea. Costochondritis. Acute Pain. Crush Injury, Upper Extremity. Tetanus Status. Hypertension. TMJ Syndrome. Myofascial Strain. MRSA Infection. Sinusitis. Headache. Nausea. Anxiety Reaction. Immunizations. Drug Poisoning. Abdominal Pain. Pyelonephritis Suicidal Ideation Inguinal Strain SURGERIES: Appendectomy. Left buttock surgery for "MRSA". Shoulder Surgery. SOCIAL HISTORY Never smoker. No alcohol use or drug use. ADDITIONAL NOTES The nursing notes have been reviewed. PHYSICAL EXAM Vital Signs: 02/15/2017 21:07 BP: 122/65. HR: 98. RR: 16. O2 saturation: 95%. Temp: 101.6 F. Pain level now: 1010. Have been reviewed. Blood pressure normal. Heart rate normal. Respiratory rate normal. Febrile. Oxygen saturation normal. Appearance: Alert. No acute distress. Eyes: Eyes normal inspection. No photophobia. ENT: Dry mucous membranes present. Neck: Normal inspection. Neck supple. No meningeal signs. No neck stiffness or nuchal rigidity. Negative Brudzinski's sign and Kernig's sign. CVS: Normal heart rate and rhythm. Heart sounds normal. Respiratory: No respiratory distress. Breath sounds normal. Abdomen: Soft and nontender. No organomegaly. Back: Moderate soft-tissue tenderness in the right lower and left lower lumbar area. Mild muscle spasm in the right lower and left lower lumbar spine region. No CVA tenderness. Skin: Skin warm and dry. Normal skin color. No rash. Extremities: No lower extremity edema. Neuro: Oriented X 3. Alert. No motor deficit. No sensory deficit. (Neg SLR's). LABS, X-RAYS, AND EKG Laboratory Tests: UA-Culture if indicated: (DOLORES: 02/15/2017 22:10) ( [facility] 02/15/2017 22:35) Final results Test Result Flag Units (Reference) URINE COLOR YELLOW URINE APPEARANCE CLEAR URINE GLUCOSE NEGATIVE (NEGATIVE) URINE BILIRUBIN NEGATIVE (NEGATIVE) URINE KETONE 3+ (NEGATIVE) URINE SPECIFIC GRAVITY 1.015 (1.010-1.030) URINE PH 6.5 (5.0-8.0) URINE PROTEIN NEGATIVE (NEGATIVE) URINE UROBILINOGEN 0.2 EU/dL (0.2-1.0) URINE NITRITE NEGATIVE (NEGATIVE) URINE BLOOD NEGATIVE (NEGATIVE) URINE LEUK ESTERASE NEGATIVE (NEGATIVE) URINE RBC RARE rbc/hpf (0-1) URINE WBC RARE wbc/hpf (0-1) URINE EPITHELIAL CELLS NONE SEEN EPI/hpf (0-5) URINE BACTERIA NONE SEEN (NONE SEEN) URINE COMMENT CULT NOT INDICATED URINE CULTURES ARE SET-UP BASED ON THE FOLLOWING CRITERIA:POSITIVE NITRITEPOSITIVE LEUKOCYTE ESTERASEGREATER THAN 10 WHITE BLOOD CELLSMODERATE (2+) OR GREATER BACTERIA CBC w Diff: (DOLORES: 02/15/2017 22:55) ( [facility] 02/15/2017 23:22) Final results Test Result Flag Units (Reference) WHITE BLOOD COUNT 10.5 K/uL (4.5-11.5) RED BLOOD COUNT 4.47 L M/uL (4.50-5.90) HEMOGLOBIN 13.8 gm/dL (13.5-17.5) HEMATOCRIT 40.6 L % (41.0-53.0) MEAN CELL VOLUME 91 fL (80-100) MEAN CORPUSCULAR HGB 31 pg (26-34) MEAN CORPUSCULAR HGB CONC 34 g/dL (31-37) RED CELL DISTRIBUTION WIDTH 12.4 % (11.6-14.8) PLATELET COUNT 176 K/uL (150-400) NEUTROPHIL % 81.5 H % (50-75) LYMPH % 14.2 L % (25-40) MONO % 3.6 % (3-14) EOSINOPHIL % 0.4 % (0-4) BASOPHIL % 0.3 % (0-2) CMP: (DOLORES: 02/15/2017 22:55) ( [facility] 02/15/2017 23:33) Final results Test Result Flag Units (Reference) GLUCOSE 93 mg/dL (70-110) BUN 14 mg/dL (7-18) CREATININE 1.1 mg/dL (0.6-1.3) Estimated GFR >60 mL/min Estimated GFR- >60 mL/min Note: Persistent reduction over 3 months in eGFR<60 mL/min/1.73 m2 defines CKD. Patients with eGFR values>=60 mL/min/1.73 m2 may also have CKD if evidence ofpersistent proteinuria. Additional information may be foundat www.kidney.org. SODIUM 139 mmol/L (136-145) POTASSIUM 3.4 L mmol/L (3.5-5.1) CHLORIDE 103 mmol/L (98-107) CARBON DIOXIDE 27 mmol/L (21-32) CALCIUM 8.4 L mg/dL (8.5-10.1) TOTAL PROTEIN 7.5 g/dL (6.4-8.2) ALBUMIN 3.9 g/dL (3.3-5.0) BILIRUBIN, TOTAL 0.8 mg/dL (0.0-1.0) ALKALINE PHOSPHATASE 57 U/L (46-116) AST (SGOT) 22 U/L (15-37) ALT (SGPT) 40 U/L (12-78) Urine Drug Screen: (DOLORES: 02/15/2017 22:10) ( [facility] 02/15/2017 22:35) Final results Test Result Flag Units (Reference) AMPHETAMINE/METHAMPHETAMINE NEGATIVE (NEGATIVE) BARBITURATE NEGATIVE (NEGATIVE) BENZODIAZEPINE NEGATIVE (NEGATIVE) CANNABINOID NEGATIVE (NEGATIVE) COCAINE NEGATIVE (NEGATIVE) ECSTASY NEGATIVE (NEGATIVE) METHADONE NEGATIVE (NEGATIVE) OPIATE NEGATIVE (NEGATIVE) The urine drug screen is a qualitative screening test fordrug overdose and abuse. All screen results should beconsidered as presumptive.Drugs screened for are as follows:BenzodiazepinesCocaineAmphetamines/MetamphetaminesTHC (Tetrahydrocannabinol)OpiatesBarbituratesEcstasyMethadonePositive results are unconfirmed. For confirmation, notifythe lab for the specimen to be sent to the reference lab.All confirmations must be performed by a differentmethodology.The ingestion of natural herbal and plant productscontaining Ephedra/Ephedra metabolites can produce in urineone or more substances capable of cross reacting withamphetamine/methamphetamine immunoassays. These testsprovide a preliminary result only. A more specificalternative chemical method must be used to obtain aconfirmed analytical result. . PROGRESS AND PROCEDURES Course of Care: 00:36 02/16/17. H/A much better now after IVF, currently no meningeal signs. Disposition: Discharged home in good and improved condition. Condition: good. CLINICAL IMPRESSION Acute frontal sinusitis Muscle strain of the low back. INSTRUCTIONS Your Current Medications: CONTINUE TAKING THE FOLLOWING MEDICATIONS: Hydrochlorothiazide Oral : 12.5 mg. Lisinopril Oral : 10 mg. Prescription Medications: Zithromax take 1 orally every day for 3 days. Total course 3 days. No refills. Diclofenac 50 mg tablets: take 1 tablet orally every 8 hours as needed for pain or stiffness. Dispense thirty (30). No refill. Follow-up: Follow up with your doctor in about two days. Call for an appointment. Blood pressure screening was not performed during this visit because the patient has an active diagnosis of hypertension. (Electronically signed by Adam Woodruff Dr. 02/16/2017 4:08)
--- NOTE | 2017-02-16 01:54 | ED ORDER SUMMARY ---
..... Patient: MADINA CHASEN ADELSO Avila OrderSheet [facility] VisitID: [id number] [place] [address] 36y, M Registration Date/Time: 02/15/2017 ORDER SHEET Weight: 90.7 kg (stated) Allergies: No Known Drug Allergy GENERAL ORDERS: UA-Culture if indicated Urgent (22:11 02/15/2017 Edita Kim) (22:12 JSanders R.N.) Urine Drug Screen Urgent (22:11 02/15/2017 Edita Kim) (22:12 JSanders R.N.) CBC w Diff Urgent (22:46 02/15/2017 Edita Kim) (Ack 22:48 AMcQuoid ER Tech1) (23:05 JSanders R.N.) CMP Urgent (22:46 02/15/2017 Edita Kim) (Ack 22:48 AMcQuoid ER Tech1) (23:05 JSanders R.N.) Lumbar Spine 2 or 3V Urgent (00:28 02/16/2017 Edita Kim) (Ack 0:33 AMcQuoid ER Tech1) (0:59 JSanders R.N.) MEDICATION ORDERS: Toradol IM 60 mg (NOW) (21:37 02/15/2017 Edita Kim) (Ack 21:40 JSanders R.N.) (21:49 JSanders R.N.) Azithromycin PO 500 mg (NOW) (00:55 02/16/2017 Edita Kim) (Ack 0:59 JSanders R.N.) (1:15 JSanders R.N.) IV FLUIDS: IV NS : initial bolus none -, then 1000 mL/hr for X1 (NOW) (22:45 02/15/2017 Edita Kim) (Ack 22:47 JSanders R.N.) (23:06 JSanders R.N.) Morphine IV 4 mg (HIGH ALERT MEDICATION, NOW) (22:46 02/15/2017 Edita Kim) (Ack 22:47 JSanders R.N.) (23:06 JSanders R.N.) ORDER SHEET NOTES: [Electronically signed by Sara Curry R.N. (:02/16/2017)] [Electronically signed by Adam Woodruff Dr. (04:08 02/16/2017)] [Electronically locked/signed by Sara Curry R.N. (02/16/2017)]
--- NOTE | 2017-02-16 01:54 | ED CLINICAL REPORT ---
Clinical Report - Physicians/Mid Levels [facility] [address] [place] [address] 02/15/2017 21:04 Patient: TAHMINA CHASE Time Seen: 21:08; initial patient contact. Arrived- By private vehicle. Historian- patient. HISTORY OF PRESENT ILLNESS Is still present. Chief Complaint: HEADACHE. This started about 12 hours ago. It was gradual in onset. It is described as pressure. Located in the frontal region. No neck pain. Not located in the facial region. At its maximum, severity described as moderate. When seen in the E.D., severity described as moderate. The patient has had nausea. No preceding symptoms, blurred vision, photophobia or vomiting. Similar symptoms previously: None. Recent medical care: Not recently seen/assessed. REVIEW OF SYSTEMS The patient has had sinus pressure, fever, muscle aches and back pain. No skin rash. All systems otherwise negative, except as recorded above. PAST HISTORY Dyspnea. Costochondritis. Acute Pain. Crush Injury, Upper Extremity. Tetanus Status. Hypertension. TMJ Syndrome. Myofascial Strain. MRSA Infection. Sinusitis. Headache. Nausea. Anxiety Reaction. Immunizations. Drug Poisoning. Abdominal Pain. Pyelonephritis Suicidal Ideation Inguinal Strain SURGERIES: Appendectomy. Left buttock surgery for "MRSA". Shoulder Surgery. SOCIAL HISTORY Never smoker. No alcohol use or drug use. ADDITIONAL NOTES The nursing notes have been reviewed. PHYSICAL EXAM Vital Signs: 02/15/2017 21:07 BP: 122/65. HR: 98. RR: 16. O2 saturation: 95%. Temp: 101.6 F. Pain level now: 1010. Have been reviewed. Blood pressure normal. Heart rate normal. Respiratory rate normal. Febrile. Oxygen saturation normal. Appearance: Alert. No acute distress. Eyes: Eyes normal inspection. No photophobia. ENT: Dry mucous membranes present. Neck: Normal inspection. Neck supple. No meningeal signs. No neck stiffness or nuchal rigidity. Negative Brudzinski's sign and Kernig's sign. CVS: Normal heart rate and rhythm. Heart sounds normal. Respiratory: No respiratory distress. Breath sounds normal. Abdomen: Soft and nontender. No organomegaly. Back: Moderate soft-tissue tenderness in the right lower and left lower lumbar area. Mild muscle spasm in the right lower and left lower lumbar spine region. No CVA tenderness. Skin: Skin warm and dry. Normal skin color. No rash. Extremities: No lower extremity edema. Neuro: Oriented X 3. Alert. No motor deficit. No sensory deficit. (Neg SLR's). LABS, X-RAYS, AND EKG Laboratory Tests: UA-Culture if indicated: (DOLORES: 02/15/2017 22:10) ( [employer] [facility] 02/15/2017 22:35) Final results Test Result Flag Units (Reference) URINE COLOR YELLOW URINE APPEARANCE CLEAR URINE GLUCOSE NEGATIVE (NEGATIVE) URINE BILIRUBIN NEGATIVE (NEGATIVE) URINE KETONE 3+ (NEGATIVE) URINE SPECIFIC GRAVITY 1.015 (1.010-1.030) URINE PH 6.5 (5.0-8.0) URINE PROTEIN NEGATIVE (NEGATIVE) URINE UROBILINOGEN 0.2 EU/dL (0.2-1.0) URINE NITRITE NEGATIVE (NEGATIVE) URINE BLOOD NEGATIVE (NEGATIVE) URINE LEUK ESTERASE NEGATIVE (NEGATIVE) URINE RBC RARE rbc/hpf (0-1) URINE WBC RARE wbc/hpf (0-1) URINE EPITHELIAL CELLS NONE SEEN EPI/hpf (0-5) URINE BACTERIA NONE SEEN (NONE SEEN) URINE COMMENT CULT NOT INDICATED URINE CULTURES ARE SET-UP BASED ON THE FOLLOWING CRITERIA:POSITIVE NITRITEPOSITIVE LEUKOCYTE ESTERASEGREATER THAN 10 WHITE BLOOD CELLSMODERATE (2+) OR GREATER BACTERIA CBC w Diff: (DOLORES: 02/15/2017 22:55) ( [facility] [facility] 02/15/2017 23:22) Final results Test Result Flag Units (Reference) WHITE BLOOD COUNT 10.5 K/uL (4.5-11.5) RED BLOOD COUNT 4.47 L M/uL (4.50-5.90) HEMOGLOBIN 13.8 gm/dL (13.5-17.5) HEMATOCRIT 40.6 L % (41.0-53.0) MEAN CELL VOLUME 91 fL (80-100) MEAN CORPUSCULAR HGB 31 pg (26-34) MEAN CORPUSCULAR HGB CONC 34 g/dL (31-37) RED CELL DISTRIBUTION WIDTH 12.4 % (11.6-14.8) PLATELET COUNT 176 K/uL (150-400) NEUTROPHIL % 81.5 H % (50-75) LYMPH % 14.2 L % (25-40) MONO % 3.6 % (3-14) EOSINOPHIL % 0.4 % (0-4) BASOPHIL % 0.3 % (0-2) CMP: (DOLORES: 02/15/2017 22:55) ( [facility] 02/15/2017 23:33) Final results Test Result Flag Units (Reference) GLUCOSE 93 mg/dL (70-110) BUN 14 mg/dL (7-18) CREATININE 1.1 mg/dL (0.6-1.3) Estimated GFR >60 mL/min Estimated GFR- >60 mL/min Note: Persistent reduction over 3 months in eGFR<60 mL/min/1.73 m2 defines CKD. Patients with eGFR values>=60 mL/min/1.73 m2 may also have CKD if evidence ofpersistent proteinuria. Additional information may be foundat www.kidney.org. SODIUM 139 mmol/L (136-145) POTASSIUM 3.4 L mmol/L (3.5-5.1) CHLORIDE 103 mmol/L (98-107) CARBON DIOXIDE 27 mmol/L (21-32) CALCIUM 8.4 L mg/dL (8.5-10.1) TOTAL PROTEIN 7.5 g/dL (6.4-8.2) ALBUMIN 3.9 g/dL (3.3-5.0) BILIRUBIN, TOTAL 0.8 mg/dL (0.0-1.0) ALKALINE PHOSPHATASE 57 U/L (46-116) AST (SGOT) 22 U/L (15-37) ALT (SGPT) 40 U/L (12-78) Urine Drug Screen: (DOLORES: 02/15/2017 22:10) ( [employer] [facility] 02/15/2017 22:35) Final results Test Result Flag Units (Reference) AMPHETAMINE/METHAMPHETAMINE NEGATIVE (NEGATIVE) BARBITURATE NEGATIVE (NEGATIVE) BENZODIAZEPINE NEGATIVE (NEGATIVE) CANNABINOID NEGATIVE (NEGATIVE) COCAINE NEGATIVE (NEGATIVE) ECSTASY NEGATIVE (NEGATIVE) METHADONE NEGATIVE (NEGATIVE) OPIATE NEGATIVE (NEGATIVE) The urine drug screen is a qualitative screening test fordrug overdose and abuse. All screen results should beconsidered as presumptive.Drugs screened for are as follows:BenzodiazepinesCocaineAmphetamines/MetamphetaminesTHC (Tetrahydrocannabinol)OpiatesBarbituratesEcstasyMethadonePositive results are unconfirmed. For confirmation, notifythe lab for the specimen to be sent to the reference lab.All confirmations must be performed by a differentmethodology.The ingestion of natural herbal and plant productscontaining Ephedra/Ephedra metabolites can produce in urineone or more substances capable of cross reacting withamphetamine/methamphetamine immunoassays. These testsprovide a preliminary result only. A more specificalternative chemical method must be used to obtain aconfirmed analytical result. . PROGRESS AND PROCEDURES Course of Care: 00:36 02/16/17. H/A much better now after IVF, currently no meningeal signs. Disposition: Discharged home in good and improved condition. Condition: good. CLINICAL IMPRESSION Acute frontal sinusitis Muscle strain of the low back. INSTRUCTIONS Your Current Medications: CONTINUE TAKING THE FOLLOWING MEDICATIONS: Hydrochlorothiazide Oral : 12.5 mg. Lisinopril Oral : 10 mg. Prescription Medications: Zithromax take 1 orally every day for 3 days. Total course 3 days. No refills. Diclofenac 50 mg tablets: take 1 tablet orally every 8 hours as needed for pain or stiffness. Dispense thirty (30). No refill. Follow-up: Follow up with your doctor in about two days. Call for an appointment. Blood pressure screening was not performed during this visit because the patient has an active diagnosis of hypertension. (Electronically signed by Adam Woodruff Dr. 02/16/2017 4:08)
--- NOTE | 2017-02-16 01:54 | ED NURSING NOTES ---
Clinical Report - Nurses [facility] [place] [address] 02/15/2017 21:04 Patient: TAHMINA CHASE TRIAGE Triage time 21:Feb 15 2017. Acuity: LEVEL 3. Chief Complaint: HEADACHE and WEAKNESS and DIZZINESS (body aches, low back ache). 21:13 02/15/17. SEPSIS SCREEN: Sepsis Screen: negative temperature less than 36 degrees C (96.8 degrees F) and heart rate greater than 90. --21:13 Sara Curry R.N. 21:07 02/15/17. BP: 122/65 (regular adult cuff) taken on the left arm. HR: 98. RR: 16. O2 saturation: 95%. Temp: 101.6 F. Pain level now: 06/06. --21:13 Sara Curry R.N. NIKOLAY COMA SCORE: [place] Coma Scale: 15- eyes open spontaneously (4); best verbal response- oriented x 4 (5); best motor response- obeys commands (6). --21:14 Sara Curry R.N. Weight: 90.7 kg stated. Height/Length: 71 inches Per Patient. BMI: 27.9. --21:08 Sara Curry R.N. Medications Hydrochlorothiazide Oral 12.5 mg. Lisinopril Oral 10 mg. --21:09 Sara Curry R.N. Allergies No Known Drug Allergy. --21:09 Sara Curry R.N. History Arrived by private vehicle. Historian: patient. This started 13 hours ago. He has had fever, nausea and weakness. 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 SOCIAL HX: Never smoker. No alcohol use or drug use. No recent travel. No infectious disease exposure. No known contact with a sick individual. ABUSE ASSESSMENT: No report of abuse. SELF HARM ASSESSMENT: A self harm assessment was performed. The patient answered "no" to the question "Do you have thoughts of harming or killing yourself?" and "Have you recently had thoughts about harming or killing others?". --21:13 Sara Curry R.N. Treatment SOLAR/RENEWABLE ENERGY SALES: (Ibuprofen 3 hours ago and an allergy pill). --21: Sara Curry R.N. PROBLEMS: Chest Wall Pain. Dyspnea. Costochondritis. Acute Pain. Hypertension. TMJ Syndrome. MRSA Infection. Headache. Nausea. Anxiety Reaction. Drug Poisoning. Abdominal Pain. --21: Sara Curry R.N. ADDITIONAL SURGERIES: Appendectomy. Left buttock surgery for "MRSA". Shoulder Surgery. --21: Sara Curry R.N. Interventions ID band on patient. To treatment room. --21: Sara Curry R.N. PHYSICAL ASSESSMENT 21:14 02/15/17. Ambulatory to room. Patient gowned. GENERAL / NEURO / PSYCH: Alert. Oriented X 4. Appears in no acute distress. Speech within normal limits. HEENT: No facial asymmetry noted. Pupils equal, round and reactive to light. RESPIRATORY: Respirations not labored. Breath sounds within normal limits. CVS: Capillary refill less than 2 seconds. GI / : Abdomen soft and nontender. SKIN: Skin is warm and dry. --21:14 Sara Curry R.N. NURSING PROGRESS NOTES 21:14 02/15/17. The plan of care for this patient has been created. Monitoring of patient in place. Patient gowned. Head of bed elevated. Reassurance given. Lights dimmed. Two patient identifiers checked. Call light placed in reach. Side rails up x 1. Bed placed in lowest position. Brakes of bed on. Patient ready for evaluation- chart flagged and ED physician notified. --21:14 Sara Curry R.N. late entry - 21:45 02/15/17. ( Patient sleeping, easily aroused, lights still dimmed for CORNELIUS and rest). --22: Sara Curry R.N. 21:49 02/15/2017 Toradol (Ketorolac Tromethamine) IM 60 mg given. Given in the left gluteus pop. Allergies verified and confirmed 5 rights. --21:49 Sara Curry R.N. 22:07 Patient ambulatory to restroom. --22:07 McQuoid, Suzanna, ER Tech1 22:14 02/15/17. BP: 109/62. HR: 92. RR: 20. O2 saturation: 99% on room air. Temp: 99.6 F (oral). --22:14 McQuoid, Suzanna, ER Tech1 ( Patient still has 10/10 pain). --22:38 Sara Curry R.N. 22:38 02/15/2017 Toradol IM Response: no adverse reaction pain is worsening. Symptoms are the same. The patient feels the same. --22:38 Sara Curry R.N. 22:50 02/15/2017 Site #1 started via IV in the left wrist with an 20g angiocath, with aseptic technique and good blood return; one attempt. Blood drawn: rainbow set. Labeled in the presence of the patient and sent to the lab. Saline lock flushed with 10 mL saline. --23:06 Sara Curry R.N. late entry - 22:53 02/15/17. ( Patient O2 sats was 88% patient repositioned and increased to 97%). --23:08 Sara Curry R.N. 22:56 02/15/2017 Started bag #1 1000 mL IV Fluids IV NS (Saline); at 1000 mL/hr over 1 hour(s) via site #1 via IV pump. Allergies verified and confirmed 5 rights. IV patency established. IV site checked: no pain, redness, or swelling. IV flushed thoroughly pre- and post-medication administration. --23:06 Sara Curry R.N. 23:01 02/15/2017 Morphine IVP 4 mg given over 2 minute(s) via site #1. Allergies verified, confirmed 5 rights and sedative warning given to the patient. IV patency established. IV site checked: no pain, redness, or swelling. IV flushed thoroughly pre- and post-medication administration. IVP given by RN. --23:06 Sara Curry R.N. 22:55 02/15/17. BP: 122/73 (regular adult cuff) taken on the right arm, while sitting. HR: 95. RR: 16. O2 saturation: 97% on room air. Pain level now: 10/10. --23:07 Sara Curry R.N. 23:20 02/15/17. ( Patient sleeping, easily aroused, patient complains of CORNELIUS 5/10 still and low back pain 10/10 still.). --23:20 Sara Curry R.N. 23:18 02/15/17. BP: 115/63 (regular adult cuff) taken on the right arm, while sitting. HR: 89. RR: 18. O2 saturation: 95% on room air. Temp: 99.5 F (oral). Pain level now: 01/04. Additional comments: 5/10 pain with CORNELIUS, 10/10 pain for back. --23:20 Sara Curry R.N. 23:21 02/15/2017 Morphine IVP Response: no adverse reaction pain is improving. Symptoms have improved the patient feels better. --23:21 Sara Curry R.N. 23:37 02/15/17. BP: 103/63 (regular adult cuff) taken on the right arm, via an automated monitor, while lying. HR: 80. RR: 16 (regular). O2 saturation: 94% on room air. Temp: 99.3 F. --23:40 Magda Simmons ( At patient bedside for vitals). --23:40 Magda Simmons 23:48 02/15/17. ( Patient desating in mid 80's when falling asleep, 2L O2 placed on patient by Suzanna crime scene technician). --23:48 Sara Curry R.N. 23:59 02/15/2017 IV Fluids IV NS Discontinued: bag #1 completed. Total amount infused: 1000 mL. IV patency established. IV site checked: no pain, redness, or swelling. IV flushed thoroughly. --23:59 Sury Holland R.N. 00:12 02/16/17. ( Patient sleeping, easily aroused, he says he is still having back pain). --00:12 Sara Curry R.N. Patient transported to [place] by stretcher with tech. (00:46 Feb 16 2017). --00:46 Sara Curry R.N. 01:15 02/16/2017 Azithromycin PO Tablets 500 mg given. Allergies verified and confirmed 5 rights. --01:15 Sara Curry R.N. DISPOSITION / DISCHARGE 01:58 02/16/2017 Site #1 removed upon discharge. Bandaid applied. --02:08 Sara Curry R.N. 02:08 02/16/17. Departure time: 02:Feb 16 2017. Condition at departure: improved. No learning barriers present. Discharge instructions provided and reviewed with the patient. Reviewed medication(s) side effects, precautions, dosing and course information. Prescription(s) given to the patient. Patient verbalized understanding. Written instructions provided in [place]. The patient was discharged by the physician. He was discharged home. He left the Emergency Department ambulatory and via private vehicle. Family member driving. --02:08 Sara Curry R.N. 02:04 02/16/17. BP: 109/64 (regular adult cuff) taken on the right arm, while sitting. HR: 88. RR: 16. O2 saturation: 98% on nasal cannula at 2 liters/minute. Temp: 99.1 F (oral). Pain level now: 8/10. Additional comments: Low back. --02:08 Sara Curry R.N. Locked/Released at 02/16/2017 3:22 by Sara Curry R.N.
--- NOTE | 2017-02-16 01:54 | ED NURSING NOTES ---
Clinical Report - Nurses [facility] [place] [address] 02/15/2017 21:04 Patient: TAHMINA CHASE TRIAGE Triage time 21:Feb 15 2017. Acuity: LEVEL 3. Chief Complaint: HEADACHE and WEAKNESS and DIZZINESS (body aches, low back ache). 21:13 02/15/17. SEPSIS SCREEN: Sepsis Screen: negative temperature less than 36 degrees C (96.8 degrees F) and heart rate greater than 90. --21:13 Sara Curry R.N. 21:07 02/15/17. BP: 122/65 (regular adult cuff) taken on the left arm. HR: 98. RR: 16. O2 saturation: 95%. Temp: 101.6 F. Pain level now: 06/06. --21:13 Sara Curry R.N. NIKOLAY COMA SCORE: [place] Coma Scale: 15- eyes open spontaneously (4); best verbal response- oriented x 4 (5); best motor response- obeys commands (6). --21:14 Sara Curry R.N. Weight: 90.7 kg stated. Height/Length: 71 inches Per Patient. BMI: 27.9. --21:08 Sara Curry R.N. Medications Hydrochlorothiazide Oral 12.5 mg. Lisinopril Oral 10 mg. --21:09 Sara Curry R.N. Allergies No Known Drug Allergy. --21:09 Sara Curry R.N. History Arrived by private vehicle. Historian: patient. This started 13 hours ago. He has had fever, nausea and weakness. Treatment CORE WINDER MACHINE OPERATOR: (Zofran). SOCIAL HX: Never smoker. No alcohol use or drug use. No recent travel. No infectious disease exposure. No known contact with a sick individual. ABUSE ASSESSMENT: No report of abuse. SELF HARM ASSESSMENT: A self harm assessment was performed. The patient answered "no" to the question "Do you have thoughts of harming or killing yourself?" and "Have you recently had thoughts about harming or killing others?". --21:13 Sara Curry R.N. Treatment CORE WINDER MACHINE OPERATOR: (Ibuprofen 3 hours ago and an allergy pill). --21: Sara Curry R.N. PROBLEMS: Chest Wall Pain. Dyspnea. Costochondritis. Acute Pain. Hypertension. TMJ Syndrome. MRSA Infection. Headache. Nausea. Anxiety Reaction. Drug Poisoning. Abdominal Pain. --21: Sara Curry R.N. ADDITIONAL SURGERIES: Appendectomy. Left buttock surgery for "MRSA". Shoulder Surgery. --21: Sara Curry R.N. Interventions ID band on patient. To treatment room. --21: Sara Curry R.N. PHYSICAL ASSESSMENT 21:14 02/15/17. Ambulatory to room. Patient gowned. GENERAL / NEURO / PSYCH: Alert. Oriented X 4. Appears in no acute distress. Speech within normal limits. HEENT: No facial asymmetry noted. Pupils equal, round and reactive to light. RESPIRATORY: Respirations not labored. Breath sounds within normal limits. CVS: Capillary refill less than 2 seconds. GI / : Abdomen soft and nontender. SKIN: Skin is warm and dry. --21:14 Sara Curry R.N. NURSING PROGRESS NOTES 21:14 02/15/17. The plan of care for this patient has been created. Monitoring of patient in place. Patient gowned. Head of bed elevated. Reassurance given. Lights dimmed. Two patient identifiers checked. Call light placed in reach. Side rails up x 1. Bed placed in lowest position. Brakes of bed on. Patient ready for evaluation- chart flagged and ED physician notified. --21:14 Sara Curry R.N. late entry - 21:45 02/15/17. ( Patient sleeping, easily aroused, lights still dimmed for CORNELIUS and rest). --22: Sara Curry R.N. 21:49 02/15/2017 Toradol (Ketorolac Tromethamine) IM 60 mg given. Given in the left gluteus pop. Allergies verified and confirmed 5 rights. --21:49 Sara Curry R.N. 22:07 Patient ambulatory to restroom. --22:07 McQuoid, Suzanna, ER Tech1 22:14 02/15/17. BP: 109/62. HR: 92. RR: 20. O2 saturation: 99% on room air. Temp: 99.6 F (oral). --22:14 McQuoid, Suzanna, ER Tech1 ( Patient still has 10/10 pain). --22:38 Sara Curry R.N. 22:38 02/15/2017 Toradol IM Response: no adverse reaction pain is worsening. Symptoms are the same. The patient feels the same. --22:38 Sara Curry R.N. 22:50 02/15/2017 Site #1 started via IV in the left wrist with an 20g angiocath, with aseptic technique and good blood return; one attempt. Blood drawn: rainbow set. Labeled in the presence of the patient and sent to the lab. Saline lock flushed with 10 mL saline. --23:06 Sara Curry R.N. late entry - 22:53 02/15/17. ( Patient O2 sats was 88% patient repositioned and increased to 97%). --23:08 Sara Curry R.N. 22:56 02/15/2017 Started bag #1 1000 mL IV Fluids IV NS (Saline); at 1000 mL/hr over 1 hour(s) via site #1 via IV pump. Allergies verified and confirmed 5 rights. IV patency established. IV site checked: no pain, redness, or swelling. IV flushed thoroughly pre- and post-medication administration. --23:06 Sara Curry R.N. 23:01 02/15/2017 Morphine IVP 4 mg given over 2 minute(s) via site #1. Allergies verified, confirmed 5 rights and sedative warning given to the patient. IV patency established. IV site checked: no pain, redness, or swelling. IV flushed thoroughly pre- and post-medication administration. IVP given by RN. --23:06 Sara Curry R.N. 22:55 02/15/17. BP: 122/73 (regular adult cuff) taken on the right arm, while sitting. HR: 95. RR: 16. O2 saturation: 97% on room air. Pain level now: 10/10. --23:07 Sara Curry R.N. 23:20 02/15/17. ( Patient sleeping, easily aroused, patient complains of CORNELIUS 5/10 still and low back pain 10/10 still.). --23:20 Sara Curry R.N. 23:18 02/15/17. BP: 115/63 (regular adult cuff) taken on the right arm, while sitting. HR: 89. RR: 18. O2 saturation: 95% on room air. Temp: 99.5 F (oral). Pain level now: 01/04. Additional comments: 5/10 pain with CORNELIUS, 10/10 pain for back. --23:20 Sara Curry R.N. 23:21 02/15/2017 Morphine IVP Response: no adverse reaction pain is improving. Symptoms have improved the patient feels better. --23:21 Sara Curry R.N. 23:37 02/15/17. BP: 103/63 (regular adult cuff) taken on the right arm, via an automated monitor, while lying. HR: 80. RR: 16 (regular). O2 saturation: 94% on room air. Temp: 99.3 F. --23:40 Magda Simmons ( At patient bedside for vitals). --23:40 Magda Simmons 23:48 02/15/17. ( Patient desating in mid 80's when falling asleep, 2L O2 placed on patient by Suzanna environmental technology professor). --23:48 Sara Curry R.N. 23:59 02/15/2017 IV Fluids IV NS Discontinued: bag #1 completed. Total amount infused: 1000 mL. IV patency established. IV site checked: no pain, redness, or swelling. IV flushed thoroughly. --23:59 Sury Holland R.N. 00:12 02/16/17. ( Patient sleeping, easily aroused, he says he is still having back pain). --00:12 Sara Curry R.N. Patient transported to [place] by stretcher with tech. (00:46 Feb 16 2017). --00:46 Sara Curry R.N. 01:15 02/16/2017 Azithromycin PO Tablets 500 mg given. Allergies verified and confirmed 5 rights. --01:15 Sara Curry R.N. DISPOSITION / DISCHARGE 01:58 02/16/2017 Site #1 removed upon discharge. Bandaid applied. --02:08 Sara Curry R.N. 02:08 02/16/17. Departure time: 02:Feb 16 2017. Condition at departure: improved. No learning barriers present. Discharge instructions provided and reviewed with the patient. Reviewed medication(s) side effects, precautions, dosing and course information. Prescription(s) given to the patient. Patient verbalized understanding. Written instructions provided in Somali. The patient was discharged by the physician. He was discharged home. He left the Emergency Department ambulatory and via private vehicle. Family member driving. --02:08 Sara Curry R.N. 02:04 02/16/17. BP: 109/64 (regular adult cuff) taken on the right arm, while sitting. HR: 88. RR: 16. O2 saturation: 98% on nasal cannula at 2 liters/minute. Temp: 99.1 F (oral). Pain level now: 8/10. Additional comments: Low back. --02:08 Sara Curry R.N. Locked/Released at 02/16/2017 3:22 by Sara Curry R.N.
--- NOTE | 2017-02-16 01:54 | ED ORDER SUMMARY ---
..... Patient: MADINA CHASEN ADELSO Avila OrderSheet [facility] VisitID: [id number] [place] [address] 36y, M Registration Date/Time: 02/15/2017 ORDER SHEET Weight: 90.7 kg (stated) Allergies: No Known Drug Allergy GENERAL ORDERS: UA-Culture if indicated Urgent (22:11 02/15/2017 Edita Kim) (22:12 JSanders R.N.) Urine Drug Screen Urgent (22:11 02/15/2017 Edita Kim) (22:12 JSanders R.N.) CBC w Diff Urgent (22:46 02/15/2017 Edita Kim) (Ack 22:48 AMcQuoid ER Tech1) (23:05 JSanders R.N.) CMP Urgent (22:46 02/15/2017 Edita Kim) (Ack 22:48 AMcQuoid ER Tech1) (23:05 JSanders R.N.) Lumbar Spine 2 or 3V Urgent (00:28 02/16/2017 Edita Kim) (Ack 0:33 AMcQuoid ER Tech1) (0:59 JSanders R.N.) MEDICATION ORDERS: Toradol IM 60 mg (NOW) (21:37 02/15/2017 Edita Kim) (Ack 21:40 JSanders R.N.) (21:49 JSanders R.N.) Azithromycin PO 500 mg (NOW) (00:55 02/16/2017 Edita Kim) (Ack 0:59 JSanders R.N.) (1:15 JSanders R.N.) IV FLUIDS: IV NS : initial bolus none -, then 1000 mL/hr for X1 (NOW) (22:45 02/15/2017 Edita Kim) (Ack 22:47 JSanders R.N.) (23:06 JSanders R.N.) Morphine IV 4 mg (HIGH ALERT MEDICATION, NOW) (22:46 02/15/2017 Edita Kim) (Ack 22:47 JSanders R.N.) (23:06 JSanders R.N.) ORDER SHEET NOTES: [Electronically signed by Sara Curry R.N. (:02/16/2017)] [Electronically signed by Adam Woodruff Dr. (04:08 02/16/2017)] [Electronically locked/signed by Sara Curry R.N. (02/16/2017)]
--- NOTE | 2017-02-16 04:08 | ED DISCHARGE INSTRUCTIONS ---
Patient: SALVATORE TAHMINAVictorina Avila General Instructions [facility] VisitID: [id number] [place] [address] 36y, M Registration Date/Time: 02/15/2017 Acute frontal sinusitis Muscle strain of the low back. INSTRUCTIONS Your Current Medications: CONTINUE TAKING THE FOLLOWING MEDICATIONS: Hydrochlorothiazide Oral : 12.5 mg. Lisinopril Oral : 10 mg. Prescription Medications: Zithromax take 1 orally every day for 3 days. Total course 3 days. No refills. Diclofenac 50 mg tablets: take 1 tablet orally every 8 hours as needed for pain or stiffness. Dispense thirty (30). No refill. Follow-up: Follow up with your doctor in about two days. Call for an appointment. Blood pressure screening was not performed during this visit because the patient has an active diagnosis of hypertension. ADDITIONAL INFORMATION Sinusitis [Abx Tx] The sinuses are air-filled spaces within the bones of the face. They connect to the inside of the nose. Sinusitis is an inflammation of the tissue lining the sinus cavity. Sinus inflammation can occur during a cold or hay-fever (allergies to pollens and other particles in the air) and cause symptoms of sinus congestion and fullness. A sinus infection causes fever, headache and facial pain. There is usually green or yellow drainage from the nose or into the back of the throat (post-nasal drip). Antibiotics are prescribed to treat this condition. Home Care: Drink plenty of water, hot tea, and other liquids to stay well hydrated. This thins the mucus and promotes sinus drainage. Apply heat to the painful areas of the face. Use a towel soaked in hot water. Or, factory maintenance manager the shower and direct the hot spray onto your face. This is a good way to inhale warm water vapor and get heat on your face at the same time. (Cover your mouth and nose with your hands so you can still breathe as you do this.) Use a vaporizer with products such as Vicks VapoRub (contains menthol) at night. Suck on peppermint, menthol or eucalyptus hard candies during the day. An expectorant containing guaifenesin (such as Robitussin), helps to thin the mucus and promote drainage from the sinuses. [id number] decongestants may be used unless a similar medicine was prescribed. Nasal sprays work the fastest. Use one that contains phenylephrine (Maurice-synephrine, Sinex and others) or oxymetazoline (Afrin). First blow the nose gently to remove mucus, then apply the drops. Do not use these medicines more often than directed on the label or for more than three days or symptoms may worsen. You may also use tablets containing pseudoephedrine (Sudafed). Many sinus remedies combine ingredients, which may increase side effects. Read the labels or ask the pharmacist for help. NOTE: Persons with high blood pressure should not use decongestants. They can raise blood pressure. Antihistamines are useful if allergies are a cause of your sinusitis. The mildest one is chlorpheniramine (available without a prescription). The dose for adults is 8-12mg three times a day. [NOTE: Do not use chlorpheniramine if you have glaucoma or if you are a man with trouble urinating due to an enlarged prostate.] Claritin (loratidine) is an antihistamine that causes less drowsiness and is a good alternative for daytime use. Do not use nasal rinses or irrigation during an acute sinus infection, unless advised by your doctor. Rinsing may spread the infection to other sinuses. You may use acetaminophen (Tylenol) or ibuprofen (Motrin, Advil) to control pain, unless another pain medicine was prescribed. [ NOTE: If you have chronic liver or kidney disease or ever had a stomach ulcer, talk with your doctor before using these medicines.] (Aspirin should never be used in anyone under 18 years of age who is ill with a fever. It may cause severe liver damage.) Finish the full course, even if you are feeling better after a few days. Follow Up with your doctor or this facility in one week or as instructed by our staff if not improving. Get Prompt Medical Attention if any of the following occur: Facial pain or headache becomes more severe Stiff neck Unusual drowsiness or confusion, or not acting like your normal self Swelling of the forehead or eyelids Vision problems including blurred or double vision Fever of 100.4F (38C) or higher, or as directed by your healthcare provider Seizure Back Pain [Acute Or Chronic] Back pain is usually caused by an injury to the muscles or ligaments of the spine. Sometimes the disks that separate each bone in the spine may bulge and cause pain by pressing on a nearby nerve. Back pain may also appear after a sudden twisting/bending force (such as in a car accident), after a simple awkward movement, or lifting something heavy with poor body positioning. In either case, muscle spasm is often present and adds to the pain. Acute back pain usually gets better in one to two weeks. Back pain related to disk disease, arthritis in the spinal joints or spinal stenosis (narrowing of the spinal canal) can become chronic and last for months or years. Unless you had a physical injury (for example, a car accident or fall) X-rays are usually not ordered for the initial evaluation of back pain. If pain continues and does not respond to medical treatment, x-rays and other tests may be performed at a later time. Home Care: You may need to stay in bed the first few days. But, as soon as possible, begin sitting or walking to avoid problems with prolonged bed rest (muscle weakness, worsening back stiffness and pain, blood clots in the legs). When in bed, try to find a position of comfort. A firm mattress is best. Try lying flat on your back with pillows under your knees. You can also try lying on your side with your knees bent up towards your chest and a pillow between your knees. Avoid prolonged sitting. This puts more stress on the lower back than standing or walking. During the first two days after injury, apply an ICE PACK to the painful area for 20 minutes every 2-4 hours. This will reduce swelling and pain. HEAT (hot shower, hot bath or heating pad) works well for muscle spasm. You can start with ice, then switch to heat after two days. Some patients feel best alternating ice and heat treatments. Use the one method that feels the best to you. You may use acetaminophen (Tylenol) or ibuprofen (Motrin, Advil) to control pain, unless another pain medicine was prescribed. [NOTE: If you have chronic liver or kidney disease or ever had a stomach ulcer or GI bleeding, talk with your doctor before using these medicines.] Be aware of safe lifting methods and do not lift anything over 15 pounds until all the pain is gone. Follow Up with your doctor or this facility if your symptoms do not start to improve after one week. Physical therapy may be needed. [NOTE: If X-rays were taken, they will be reviewed by a radiologist. You will be notified of any new findings that may affect your care.] Get Prompt Medical Attention if any of the following occur: Pain becomes worse or spreads to your legs Weakness or numbness in one or both legs Loss of bowel or bladder control Numbness in the groin or genital area You have been given the following additional information: Sinusitis, Abx Tx Back Pain (Acute Or Chronic) (Electronically signed by Adam Woodruff Dr. 02/16/2017 4:08)
--- NOTE | 2017-02-16 04:08 | ED MED RECONCILIATION SUMMARY ---
Patient: TAHIMNA CHASE Medication Reconciliation Report [facility] VisitID: [id number] [address] [place] [address] 36y, M Registration Date/Time: 02/15/2017 Weight: 90.7 kg Height/Length: 71 in. BMI: 27.9 ALLERGIES: No Known Drug Allergy The patient's Home Medications are listed below: CONTINUE TAKING THE FOLLOWING MEDICATIONS: Hydrochlorothiazide Oral 12.5 mg Lisinopril Oral 10 mg The source(s) of the original Home Medication information: Not obtained. The following Medications were given to the patient in the Emergency Department: Toradol [IM] IM 60 mg, administered: 02/15/2017 9:49:00 PM IV NS IV Fluids bolus 0, then 1000 mL/hr, administered: 02/15/2017 10:56:00 PM Morphine [IVP] IVP 4 mg, administered: 02/15/2017 11:01:00 PM Azithromycin [PO] PO 500 mg, administered: 02/16/2017 1:15:00 AM The following Medications were prescribed to the patient: Zithromax take 1 orally every day for 3 days. Total course 3 days. No refills. -- Adam Woodruff Dr. Diclofenac 50 mg tablets: take 1 tablet orally every 8 hours as needed for pain or stiffness. Dispense thirty (30). No refill. -- Adam Woodruff Dr.
--- NOTE | 2017-02-16 04:08 | ED MAR SUMMARY ---
..... Medication Administration Record [facility] [address] [place] [address] Patient: TAHMINA CHASE Visit ID: [id number] 36y, M Weight: 90.7 kg Height/Length: 71 in BMI: 27.9 ALLERGIES: No Known Drug Allergy Given 21:49 02/15/2017 Sara Curry R.N. Medication Administered: TORADOL [IM] (KETOROLAC TROMETHAMINE), Dose: 60 mg IM. Medication Ordered: Toradol IM 60 mg (NOW). Start 22:56 02/15/2017 Sara Curry R.N., Stop 23:59 02/15/2017 Sury Holland R.N. Medication Administered: IV NS (SALINE), Dose: IV Fluids over 1 hour(s), Rate: 1000 mL/hr, Dispensed: 1000 mL bag, Site: #1 left wrist. Medication Ordered: IV NS : initial bolus none -, then 1000 mL/hr for X1 (NOW). Given 23:01 02/15/2017 Sara Curry R.N. Medication Administered: MORPHINE [IVP], Dose: 4 mg IVP over 2 minute(s), Site: #1 left wrist. Medication Ordered: Morphine IV 4 mg (HIGH ALERT MEDICATION, NOW). Given 01:15 02/16/2017 Sara Curry R.N. Medication Administered: AZITHROMYCIN [PO], Dose: 500 mg Tablets PO. Medication Ordered: Azithromycin PO 500 mg (NOW).
--- NOTE | 2017-02-16 04:08 | ED MAR SUMMARY ---
..... Medication Administration Record [facility] [address] [place] [address] Patient: TAHMINA CHASE Visit ID: [id number] 36y, M Weight: 90.7 kg Height/Length: 71 in BMI: 27.9 ALLERGIES: No Known Drug Allergy Given 21:49 02/15/2017 Sara Curry R.N. Medication Administered: TORADOL [IM] (KETOROLAC TROMETHAMINE), Dose: 60 mg IM. Medication Ordered: Toradol IM 60 mg (NOW). Start 22:56 02/15/2017 Sara Curry R.N., Stop 23:59 02/15/2017 Sury Holland R.N. Medication Administered: IV NS (SALINE), Dose: IV Fluids over 1 hour(s), Rate: 1000 mL/hr, Dispensed: 1000 mL bag, Site: #1 left wrist. Medication Ordered: IV NS : initial bolus none -, then 1000 mL/hr for X1 (NOW). Given 23:01 02/15/2017 Sara Curry R.N. Medication Administered: MORPHINE [IVP], Dose: 4 mg IVP over 2 minute(s), Site: #1 left wrist. Medication Ordered: Morphine IV 4 mg (HIGH ALERT MEDICATION, NOW). Given 01:15 02/16/2017 Sara Curry R.N. Medication Administered: AZITHROMYCIN [PO], Dose: 500 mg Tablets PO. Medication Ordered: Azithromycin PO 500 mg (NOW).
--- NOTE | 2017-02-16 04:08 | ED MED RECONCILIATION SUMMARY ---
Patient: TAHMINA CHASE Medication Reconciliation Report [facility] VisitID: [id number] [address] [place] [address] 36y, M Registration Date/Time: 02/15/2017 Weight: 90.7 kg Height/Length: 71 in. BMI: 27.9 ALLERGIES: No Known Drug Allergy The patient's Home Medications are listed below: CONTINUE TAKING THE FOLLOWING MEDICATIONS: Hydrochlorothiazide Oral 12.5 mg Lisinopril Oral 10 mg The source(s) of the original Home Medication information: Not obtained. The following Medications were given to the patient in the Emergency Department: Toradol [IM] IM 60 mg, administered: 02/15/2017 9:49:00 PM IV NS IV Fluids bolus 0, then 1000 mL/hr, administered: 02/15/2017 10:56:00 PM Morphine [IVP] IVP 4 mg, administered: 02/15/2017 11:01:00 PM Azithromycin [PO] PO 500 mg, administered: 02/16/2017 1:15:00 AM The following Medications were prescribed to the patient: Zithromax take 1 orally every day for 3 days. Total course 3 days. No refills. -- Adam Woodruff Dr. Diclofenac 50 mg tablets: take 1 tablet orally every 8 hours as needed for pain or stiffness. Dispense thirty (30). No refill. -- Adam Woodruff Dr.
--- NOTE | 2017-02-16 04:36 | DIAGNOSTIC IMAGING REPORT ---
PROCEDURE: XR LUMBAR SPINE 2 OR 3 VIEWS INDICATION: LOWER EXTERMITY TINGLING TECHNIQUE: Three views. COMPARISON: None. FINDINGS: There is mild this space narrowing at L5-S1 with mild degenerative changes of the lower lumbar facet joints. Osseous structures and disc spaces are otherwise normal. IMPRESSION: 1. Mild degenerative changes. 2. Otherwise negative lumbar spine.
== END 2017-02-16 02:04 | disposition home or self-care (01) ==
LOC: ED SRH 21:03
DX: J01.10 Acute frontal sinusitis, unspecified (principal); S39.012A Strain of muscle, fascia and tendon of lower back, initial encounter; I10 Essential (primary) hypertension; X58.XXXA Exposure to other specified factors, initial encounter; Y93.9 Activity, unspecified; Y92.9 Unspecified place or not applicable; Y99.9 Unspecified external cause status; Z79.899 Other long term (current) drug therapy
CPT/HCPCS: 90004; 90100; 92760; 92761; 92762; 92763; 92764; 92765; 92766; 92767; 95059